=== PATIENT | male | born 1940 | race Caucasian/White ===

== ENCOUNTER 2018-07-05 11:04 | Outpatient (CLI) | payer MEDICARE, BC, SELFPAY ==
[2018-07-05 11:58] LABS: Bilirubin Negative (Negative); Blood Negative (Negative); Clarity Clear; Glucose Negative (Negative); Ketones Negative (Negative); Leukocyte Esterase Negative (Negative); Nitrite Negative (Negative); Specific Gravity 1.025 (1.005-1.025); pH 6.5 (5-8)
[2018-07-05 12:11] LABS: Abs Immature Grans 0.02 k/cumm (0.0-0.09); Absolute Basophil Count 0.05 k/cumm (0.0-0.2); Absolute Lymphocyte Count 1.98 k/cumm (1.2-3.4); Absolute Monocyte Count 0.75 k/cumm (0.11-0.7); Absolute Neutrophil Count 6.22 k/cumm (1.2-6.7); Basophils % 0.5; Eosinophils % 6.2; HCT 36.8 % (40.0-50.0); HGB 12.6 g/dL (13.5-17.5); Immature Grans % 0.2; Lymphocytes % 20.6; Mean Corp. HGB Concentration 34.2 g/dL (32.0-36.0); Mean Corpuscular Hemoglobin 31.3 pg (27.0-33.0); Mean Corpuscular Volume 91.5 fL (80-95); Mean Platelet Volume 10.4 fL (8.0-11.0); Monocytes % 7.8; Neutrophils % 64.7; Platelet Count 313 x1000/uL (130-400); RBC 4.02 m/cumm (4.50-6.00); RBC Distribution Width 12.5 % (11.8-14.1); White Blood Cell Count 9.62 k/cumm (4.4-10.8)
[2018-07-05 13:14] LABS: ALT 31 U/L (12-78); AST 39 U/L (15-37); Albumin 3.6 g/dL (3.4-5.0); Alkaline Phosphatase 46 U/L (46-116); Anion Gap 8.9 mmol/L (3-11); BUN 23 mg/dL (7-18); Bilirubin, Total 0.6 mg/dL (0.2-1.0); CO2 25.1 mmol/L (21.0-32.0); CREATININE 1.45 mg/dL (0.70-1.30); Calcium 9.3 mg/dL (8.5-10.1); Chloride 105 mmol/L (98-107); Cholesterol 153 mg/dL (50-200); Estimated GFR 47.07 (mL/min/1.73m2); Glucose 127 mg/dL (70-100); HDL Cholesterol 61 mg/dL (40-60); LDL CHOLESTEROL 86 mg/dL (<100); Potassium 4.4 mmol/L (3.5-5.1); Sodium 139 mmol/L (136-145); TSH 1.08 uIU/mL (0.358-3.74); Total Protein 6.6 g/dL (6.4-8.2); Triglyceride 84 mg/dL (30-150)
== END 2018-07-05 11:24 ==
PROVIDERS: PCP Internal Medicine; Visit Provider Internal Medicine
DX: E78.2 Mixed hyperlipidemia (principal); D50.9 Iron deficiency anemia, unspecified; N39.0 Urinary tract infection, site not specified
CPT/HCPCS: 36415; 80053; 80061; 83721; 81003; 84443; 85025

== ENCOUNTER 2018-07-16 10:38 | Outpatient (CLI) | payer MEDICARE, BC, SELFPAY ==
[2018-07-16 12:11] LABS: Hemoglobin A1C 6.1 % (4.5-6.2)
== END 2018-07-16 10:58 ==
PROVIDERS: PCP Internal Medicine; Visit Provider Internal Medicine
DX: E11.9 Type 2 diabetes mellitus without complications (principal); Z79.4 Long term (current) use of insulin
CPT/HCPCS: 36415; 83036

== ENCOUNTER 2018-10-02 08:13 | Outpatient (CLI) | payer MEDICARE, BC, SELFPAY ==
[2018-10-02 11:58] LABS: HCT 36.9 % (40.0-50.0); HGB 12.7 g/dL (13.5-17.5); Mean Corp. HGB Concentration 34.4 g/dL (32.0-36.0); Mean Corpuscular Hemoglobin 31.1 pg (27.0-33.0); Mean Corpuscular Volume 90.2 fL (80-95); Mean Platelet Volume 10.2 fL (8.0-11.0); Platelet Count 327 x1000/uL (130-400); RBC 4.09 m/cumm (4.50-6.00); RBC Distribution Width 12.9 % (11.8-14.1); White Blood Cell Count 7.95 k/cumm (4.4-10.8)
[2018-10-02 12:04] LABS: Bilirubin Negative (Negative); Blood Negative (Negative); Clarity Clear; Glucose 100 mg/dL (Negative); Ketones Negative (Negative); Leukocyte Esterase Negative (Negative); Nitrite Negative (Negative); Specific Gravity 1.025 (1.005-1.025); Urobilinogen 0.2 EU/dL (Up TO 0.2); pH 5.5 (5-8)
[2018-10-02 12:46] LABS: Albumin 3.7 g/dL (3.4-5.0); Anion Gap 12.5 mmol/L (3-11); BUN 21 mg/dL (7-18); CO2 24.5 mmol/L (21.0-32.0); CREATININE 1.31 mg/dL (0.70-1.30); Calcium 9.7 mg/dL (8.5-10.1); Chloride 103 mmol/L (98-107); Estimated GFR 52.92 (mL/min/1.73m2); Glucose 171 mg/dL (70-100); Potassium 4.5 mmol/L (3.5-5.1); Sodium 140 mmol/L (136-145)
[2018-10-03 10:45] LABS: Parathyroid Hormone,Intact 28 pg/ml (19-88)
== END 2018-10-02 08:33 ==
PROVIDERS: PCP Internal Medicine; Visit Provider Internal Medicine Nephrology
DX: D64.9 Anemia, unspecified (principal); N18.3 Chronic kidney disease, stage 3 (moderate); E78.5 Hyperlipidemia, unspecified; I10 Essential (primary) hypertension
CPT/HCPCS: 36415; 80069; 82306; 85027; 81003; 83970

== ENCOUNTER 2018-12-23 11:09 | Outpatient (CLI) | payer MEDICARE, BC, SELFPAY ==
--- NOTE | 2018-12-23 10:10 | DIABASSESS_ITS ---
DESCRIPTION/ASSESSMENT: Appreciate diabetes referral for Jeovany Mclean who has been adjusting his mealtime insulin recently and feels he would like to discuss his actions and receive feedback. A1c 6.1 08/01 up from 5.3 ~1 year ago. He reports weight loss now down to 202 from 230 pounds. Blood sugars over the past week of: fasting 130-228, mostly less than 161. Pre-lunch blood sugar 179-215; Pre-supper 173-310mg/dl; bedtime 184-276. Blood sugars consistently higher with the subsequent meal. He takes 10u basal insulin twice daily which he has decreased from 20units twice daily. He has experimented with cutting out mealtime insulin from breakfast and lunch, only taking it at supper. He has now resumed taking insulin before lunch at 10units to cover food plus correction of 6units at blood sugar of 324. He documents this all on his phone calendar. Jeovany has breakfast of oatmeal for breakfast; meat, vegetable, mustard and woodson sandwich on whole grain bread for lunch; meat, pasta and vegetables at supper. He snacks on nuts and eats some fruit. Jeovany reports no financial stressors; he walks most days; he describes his greatest stress as his who he states is bipolar. She fixes his meals. INTERVENTION: DSME is provided based on patients interest and assessment of needs: FOOD: Reviewed diabetes food guide for carbohydrate sources and portions. He admits to hunger mid-morning especially. Explained mixing carbohydrate/fat/protein with each meal to enhance satiety and moderate blood sugars. DIscussed protein at breakfast; increasing mealtime insulin for carbohydrate when he eats a plate of pasta. MEDICATION: Explained physiology of food and insulin. He was unaware that the Novolog was meant to cover carbohydrate consumed. Explained correction action. MONITORING: Discussed discrepancy between A1c and fingerstick blood sugars. He believes the A1c, however his fingersticks do not reflect an average blood sugar of less than 140mg/dl. He denies symptoms of hypoglycemia. Some hypoglycemia would be expected with an insulin taking person with pre-diabetes A1c range. At this point we assume his blood sugars are a reasonable reflection of his glycemic control. ACTION PLAN: Jeovany will: take Novolog with each meal; record blood sugars, food and insulin increase protein/fat at breakfast; take extra mealtime insulin with high carbohydrate meal He will return in 1 week for follow up. Individual DSME/T __2__ units billed TIME IN: 1010 OUT: 1110 No DM group education series being offered at this time.
== END 2018-12-23 11:29 ==
PROVIDERS: PCP Internal Medicine; Visit Provider Dietitian, Registered
DX: E11.9 Type 2 diabetes mellitus without complications (principal); Z79.4 Long term (current) use of insulin; Z71.3 Dietary counseling and surveillance
CPT/HCPCS: G0108

== ENCOUNTER 2018-12-31 01:29 | Outpatient (CLI) | payer MEDICARE, BC, SELFPAY ==
--- NOTE | 2019-01-07 12:11 | DIABASSESS_ITS ---
DESCRIPTION:? Adrian Mclean presents for diabetes self management as follow up to adding mealtime insulin to his regimen.? He maintains careful detailed records on his phone of his medication and food regimen. Fasting blood sugars highly variable 126-214mg/dl; pre-lunch in 200s; pre-supper 176-325 and bedtime 94=[id number]. He takes 5-10units with most meals.? He does not appear to be receiving adequate mealtime insulin to take care of his food, as blood sugars always increase between breakfast and lunch.? In addition, he takes? 10units twice daily of Lantus.? INTERVENTION: Discussed increasing insuolin and he agrees.? Sugges 12u basal insulin twice daily.? Based on his current regimen, he agrees 6 units to cover breakfast and 10units at lunch will work for what he generally eats.? Total insulin dosing a day now is ~38-49 units. Discussed wearing 7 day trial of Continuous glucose monitor to see what happens overnight and post-meal. He will consider this if these changes are not effective.? PLAN: 12 units Lantus twice daily; 6 units Novolog to cover breakfast; 10units to cover lunch Individual DSME/T __2__ units billed TIME IN: 1000 OUT: 1100 No DM group education series being offered at this time.
== END 2018-12-31 01:49 ==
PROVIDERS: PCP Internal Medicine; Visit Provider Dietitian, Registered
DX: E11.9 Type 2 diabetes mellitus without complications (principal); Z71.3 Dietary counseling and surveillance; Z79.4 Long term (current) use of insulin
CPT/HCPCS: G0108

== ENCOUNTER 2019-01-13 10:45 | Outpatient (CLI) | payer MEDICARE, BC, SELFPAY ==
[2019-01-13 15:56] LABS: Bilirubin Negative (Negative); Blood Negative (Negative); Clarity Clear; Glucose 100 mg/dL (Negative); Ketones Negative (Negative); Leukocyte Esterase Negative (Negative); Nitrite Negative (Negative); Specific Gravity 1.025 (1.005-1.025); Urobilinogen 0.2 EU/dL (Up TO 0.2); pH 5.5 (5-8)
[2019-01-13 16:06] LABS: Bacteria Negative HPF (Negative); C & S Indicated? No; Casts Negative LPF (Negative); Epithelial Cells Few HPF (Negative); Mucus Negative (Negative); Other Cells Rare Transitional (Negative); RBC 0-2 (0-2); WBC Negative HPF (0-5)
[2019-01-15 10:35] LABS: PSA, Diagnostic 5.5 ng/ml (0-6.5)
== END 2019-01-13 11:05 ==
PROVIDERS: PCP Internal Medicine; Referring Provider Internal Medicine; Visit Provider Urology
DX: N40.1 Benign prostatic hyperplasia with lower urinary tract symptoms (principal); R97.20 Elevated prostate specific antigen [PSA]
CPT/HCPCS: 36415; 81003; 81015; 84153

== ENCOUNTER 2019-01-20 10:40 | Outpatient (CLI) | payer MEDICARE, BC, SELFPAY ==
--- NOTE | 2019-01-22 08:20 | W.DIABETESNO ---
Date of service: 01/20/19 Time of Service: 10:10 Diabetes Note NOTE: DESCRIPTION/ASSESSMENT: Adrian Mclean presents for diabetes self management follow up. He has added mealtime insulin to his 3 meals, and reports cutting carbohydrate in his diet. Fasting blood sugars over the past week 89-136; pre-lunch 162-273; pre-supper 88-190, bedtime blood sugar 98-207mg/dl. He is taking insulin according to his scale: blood sugar 100-140 7 units at breakfast; 11 units with lunch; 10 units iwth supper unless he has low carbohydrate. Insulin increases 1 unit every 40mg/dl above 140mg/dl. Adrian reports weight today 201. A1c 6.1 INTERVENTION: Given that Adrian's blood sugars are always elevated at lunch, he is willing to increase his breakfast insulin dose by 3 units starting at 9 units. Otherwise he is satisfied with this regimen and feeling good about his self management. PLAN: Adrian will take new insulin scale; he will call with any questions or hypoglycemic episodes. He will stay in touch as he wishes. Time Spent in Nutritional Counseling and Treatment: 20 minutes face to face outpatient diabetes
--- NOTE | 2019-01-22 08:23 | DIABASSESS_ITS ---
Date of service: 01/20/19 Time of Service: 10:10 Diabetes Note NOTE: DESCRIPTION/ASSESSMENT: Adrian Mclean presents for diabetes self management follow up. He has added mealtime insulin to his 3 meals, and reports cutting carbohydrate in his diet. Fasting blood sugars over the past week 89- 136; pre-lunch 162-273; pre-supper 88-190, bedtime blood sugar 98-207mg/dl. He is taking insulin according to his scale: blood sugar 100-140 7 units at breakfast; 11 units with lunch; 10 units iwth supper unless he has low carbohydrate. Insulin increases 1 unit every 40mg/dl above 140mg/dl. Adrian reports weight today 201. A1c 6.1 INTERVENTION: Given that Adrian's blood sugars are always elevated at lunch, he is willing to increase his breakfast insulin dose by 3 units starting at 9 units. Otherwise he is satisfied with this regimen and feeling good about his self management. PLAN: Adrian will take new insulin scale; he will call with any questions or hypoglycemic episodes. He will stay in touch as he wishes. Time Spent in Nutritional Counseling and Treatment: 20 minutes face to face outpatient diabetes
== END 2019-01-20 11:00 ==
PROVIDERS: PCP Internal Medicine; Visit Provider Dietitian, Registered
DX: E11.9 Type 2 diabetes mellitus without complications (principal); Z71.3 Dietary counseling and surveillance

== ENCOUNTER 2019-02-04 02:35 | Outpatient (CLI) | payer MEDICARE, BC, SELFPAY ==
[2019-02-04 09:01] LABS: Abs Immature Grans 0.03 k/cumm (0.0-0.09); HCT 38.4 % (40.0-50.0); HGB 13.2 g/dL (13.5-17.5); Mean Corp. HGB Concentration 34.4 g/dL (32.0-36.0); Mean Corpuscular Hemoglobin 31.7 pg (27.0-33.0); Mean Corpuscular Volume 92.3 fL (80-95); Mean Platelet Volume 10.2 fL (8.0-11.0); Platelet Count 341 x1000/uL (130-400); RBC 4.16 m/cumm (4.50-6.00); RBC Distribution Width 12.8 % (11.8-14.1); White Blood Cell Count 8.09 k/cumm (4.4-10.8)
[2019-02-04 09:05] LABS: Bilirubin Negative (Negative); Blood Negative (Negative); Clarity Clear; Glucose Negative (Negative); Ketones Negative (Negative); Leukocyte Esterase Negative (Negative); Nitrite Negative (Negative); Urobilinogen 0.2 EU/dL (Up TO 0.2)
[2019-02-04 09:46] LABS: COMMENT (LAB VIEW ONLY) 109.01 mg/dL
[2019-02-04 09:50] LABS: Hemoglobin A1C 5.2 % (4.5-6.2)
[2019-02-04 09:51] LABS: ALT 36 U/L (12-78); AST 35 U/L (15-37); Albumin 3.6 g/dL (3.4-5.0); Alkaline Phosphatase 46 U/L (46-116); BUN 22 mg/dL (7-18); Bilirubin, Total 0.6 mg/dL (0.2-1.0); CREATININE 1.51 mg/dL (0.70-1.30); Calcium 9.3 mg/dL (8.5-10.1); Chloride 105 mmol/L (98-107); Glucose 93 mg/dL (70-100); Potassium 4.4 mmol/L (3.5-5.1); Sodium 141 mmol/L (136-145); TSH 2.14 uIU/mL (0.358-3.74); Total Protein 6.7 g/dL (6.4-8.2)
[2019-02-04 10:05] LABS: Cholesterol 153 mg/dL (50-200); HDL Cholesterol 62 mg/dL (40-60); LDL CHOLESTEROL 76 mg/dL (<100); Triglyceride 65 mg/dL (30-150)
[2019-02-04 10:11] LABS: Absolute Basophil Count 0.08 k/cumm (0.0-0.2); Absolute Eosinophil Count 1.05 k/cumm (0.0-0.7); Absolute Lymphocyte Count 2.27 k/cumm (1.2-3.4); Absolute Monocyte Count 0.49 k/cumm (0.11-0.7); Absolute Neutrophil Count 4.21 k/cumm (1.2-6.7); Diff Comment Manual Differential; RBC Morphology Normal
== END 2019-02-04 02:55 ==
PROVIDERS: PCP Internal Medicine; Visit Provider Internal Medicine
DX: E11.9 Type 2 diabetes mellitus without complications (principal); Z79.4 Long term (current) use of insulin; E78.2 Mixed hyperlipidemia; N18.3 Chronic kidney disease, stage 3 (moderate); D50.9 Iron deficiency anemia, unspecified; I10 Essential (primary) hypertension
CPT/HCPCS: 36415; 80053; 80061; 83721; 81003; 82043; 82570; 83036; 84443; 85025

== ENCOUNTER 2019-02-10 16:06 | Outpatient (CLI) | payer MEDICARE, BC, SELFPAY ==
--- NOTE | 2019-02-10 11:20 | DIABASSESS_ITS ---
DESCRIPTION/ASSESSMENT: Adrian Mclean requests a follow up visit to fine tune his insulin dosing and blood sugar management focused on food choices and impact on physical activity and stress. Adrian documents blood sugars, insulin dosing and food intake for past month. Fasting blood sugars over past week 89-140; pre-lunch 108-215, pre-supper 102- 255 and bedtime 88-198. He also assesses at goal blood sugars less than 140mg/dl. Four days were all at goal; 9 days 3 were at target, and 24 days of 2 blood sugars at target and over half of his blood sugars are in target range. Yet he seeks improved glycemic control. He admits this intense management affects his quality of life. Latest A1c 5.2. He denies hypoglycemia. He takes 12-14 units insulin for breakfast and lunch; 12-18 units at supper. He does correct his blood sugar at bedtime if greater than 160mg/dl. He states he does not know why blood sugars are elevated at lunch. He has the same breakfast of egg, ann and oatmeal. He often has salad for lunch or sandwich. Supper has a lot of vegetables and protein as well as a carbohydrate. He snacks on venture bars which are high protein and fiber and low carbohydrate. Adrian takes 24u basal insulin and at least 36u bolus insulin daily. INTERVENTION: Reviewed Adrian's blood sugars in relation to food, stress and physical activity. He is able to see that days he works outside or is more physically active his blood sugars tend to be higher that day. In addition, on days he works and drives, his blood sugars are elevated. Discussed rationale. Discussed monitoring blood sugars 4 times a day and introduced CGM to him as a way to see what happens overnight. He voices interest but would like to wait until G6 is available through medicare. Also discussed his tight glycemic control and risk for hypoglycemia. Discussed food options at breakfast to decrease carbohydrate but he is not willing to give up his oatmeal. In addition, he takes insulin for a no- carbohydrate lunch and does not appear to have hypoglycemia. Reviewed insulin dosing and devised a new dosing scale with a range at Adrian's request. Discussed stressors and coping mechanisms. He self manages this and generally has a plan to address the stressors. ACTION PLAN: Adrian will use the new insulin dosing scale; be mindful of carbohydrate sources while considering his dosing range. Individual MNT __2__ units billed for 40 minutes of 70 minute visit. TIME IN: 1120 OUT: 1230 No DM group education series being offered at this time.
== END 2019-02-10 16:26 ==
PROVIDERS: PCP Internal Medicine; Visit Provider Dietitian, Registered
DX: E11.9 Type 2 diabetes mellitus without complications (principal); Z79.4 Long term (current) use of insulin; Z71.3 Dietary counseling and surveillance
CPT/HCPCS: 97803

== ENCOUNTER 2019-03-07 01:54 | Outpatient (CLI) | payer MEDICARE, BC, SELFPAY ==
--- NOTE | 2019-03-11 12:18 | DIABASSESS_ITS ---
DESCRIPTION/ASSESSMENT: Adrian Mclean presents for diabetes self management follow up for insulin management. Fasting blood sugars 93-132; pre-lunch 100- 170; pre-supper 68-218; bedtime 03=993xa/dl. He takes 13-14units Novolog with breakfast; 11=14 at lunch; 5-17 at supper and 1-3 units bedtime. He takes 13u Lantus twice daily. Total daily dose Novolog ~40; total daily and 26u basal insulin. He is intensively monitoring blood sugars, insulin and his food choices. 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 He continues to feel frustration with his regarding food and her engagement with life although he has not seen a correlation between this stress and his blood sugars. INTERVENTION: Discussed patterns. He reports habit of having a processed protein bar between lunch and supper to prevent hypoglycemia. Given that he is attempting to lose weight, discussed feeding his insulin with too much Novolog. He will continue to pay attention to carbohydrate sources and portions as he notes this is an important component. Suggest increase in basal insulin to 14u Twice daily and decrease in Novolog lunch and supper by 1 unit to prevent feeding his insulin during the day and risking hypoglycemia. PLAN: We will be in touch early next week to see if the new insulin regimen is working for him. He will take insulin only when he is eating a meal; no insulin if skipping a meal Less than 30 minutes DSME in 20 minute visit.
== END 2019-03-07 02:14 ==
PROVIDERS: PCP Internal Medicine; Visit Provider Dietitian, Registered
DX: E11.9 Type 2 diabetes mellitus without complications (principal); Z79.4 Long term (current) use of insulin; Z71.3 Dietary counseling and surveillance
CPT/HCPCS: 97802

== ENCOUNTER 2019-03-11 00:58 | Outpatient (CLI) | payer MEDICARE, BC, SELFPAY ==
--- NOTE | 2019-03-11 14:00 | DI.DEXA_ITS ---
SYMPTOM/DIAGNOSIS: OSTEOPOROSIS, M810, F/U, ON PREDNISONE IN PAST FOR PMR, USP USE ALENDRONATE,Z79.83 DEXA SCAN: The scanogram reveals degenerative changes with hypertrophic spurring at T 12-L 1 and L 1-2 and is otherwise unremarkable. For the left hip, a T score of -0.5 and a Z score of 0.5 indicate osteopenia and an increased fracture risk. For the lumbar spine, a T score of 2.3 and a Z score of 3.4 are within the normal range. For the left forearm, a T score of -3.3 and a Z score of -1.5 are recorded, the findings are consistent with osteopenia and an increased fracture risk.
== END 2019-03-11 01:18 ==
PROVIDERS: PCP Internal Medicine; Visit Provider Internal Medicine
DX: M85.88 Other specified disorders of bone density and structure, other site (principal); Z79.83 Long term (current) use of bisphosphonates; Z79.52 Long term (current) use of systemic steroids
CPT/HCPCS: 77080

== ENCOUNTER 2019-03-31 10:17 | Outpatient (CLI) | payer MEDICARE, BC, SELFPAY ==
--- NOTE | 2019-03-31 10:30 | DIABASSESS_ITS ---
DESCRIPTION/ASSESSMENT: Adrian Mclean requests diabetes self management follow up with fasting blood sugars 107-131 over past 7 days; lunch 101-139; supper 72- 137 and bedtime 817=251. He has increased his awareness of carbohydrate foods and frequency with which he feels the need for between meal foods to feed his insulin. He has cut back on carbohydrate at breakfast. His is portioning his food well. INTERVENTION: Discussed hypoglycemia symptoms and treatment and discussed what to carry with him. Discussed scenerios that would work for him based on blood sugar trends. He is satisfied with his blood sugars when he uses the mealtime insulin scale faithfully. He is highly motivated to keep his blood sugars close to normal without hypoglycemia. ACTION PLAN: He will carry life savers in the car with him and glucose tablets with him at all times. He will follow the hypoglycemia protocol. Individual MNT __2__ units billed TIME IN: 1020 OUT: 1050 No DM group education series being offered at this time.
== END 2019-03-31 10:37 ==
PROVIDERS: PCP Internal Medicine; Visit Provider Dietitian, Registered
DX: E11.9 Type 2 diabetes mellitus without complications (principal); Z79.4 Long term (current) use of insulin; Z71.3 Dietary counseling and surveillance
CPT/HCPCS: 97802

== ENCOUNTER 2019-04-14 07:53 | Outpatient (CLI) | payer MEDICARE, BC, SELFPAY ==
[2019-04-14 12:13] LABS: HCT 37.8 % (40.0-50.0); Mean Corp. HGB Concentration 34.4 g/dL (32.0-36.0); Mean Corpuscular Hemoglobin 31.6 pg (27.0-33.0); Mean Corpuscular Volume 91.7 fL (80-95); Platelet Count 346 x1000/uL (130-400); RBC 4.12 m/cumm (4.50-6.00); RBC Distribution Width 12.7 % (11.8-14.1); White Blood Cell Count 9.12 k/cumm (4.4-10.8)
[2019-04-14 12:29] LABS: PROTEIN 15.9 mg/dL
[2019-04-14 12:31] LABS: COMMENT (LAB VIEW ONLY) 188.44 mg/dL; Prot/Crea Ur Ratio 0.08
[2019-04-14 12:58] LABS: Albumin 3.7 g/dL (3.4-5.0); Anion Gap 14.6 mmol/L (3-11); BUN 32 mg/dL (7-18); CO2 21.4 mmol/L (21.0-32.0); CREATININE 1.73 mg/dL (0.70-1.30); Calcium 9.7 mg/dL (8.5-10.1); Chloride 105 mmol/L (98-107); Estimated GFR 38.29 (mL/min/1.73m2); Glucose 85 mg/dL (70-100); PHOSPHORUS 3.9 mg/dL (2.6-4.7); Potassium 4.7 mmol/L (3.5-5.1); Sodium 141 mmol/L (136-145)
[2019-04-14 13:20] LABS: Vitamin D 25 Total 74.6 ng/ml (30-100)
[2019-04-15 10:56] LABS: Parathyroid Hormone,Intact 44 pg/ml (19-88)
== END 2019-04-14 08:13 ==
PROVIDERS: PCP Internal Medicine; Visit Provider Internal Medicine Nephrology
DX: D64.9 Anemia, unspecified (principal); N18.3 Chronic kidney disease, stage 3 (moderate); E78.5 Hyperlipidemia, unspecified; I10 Essential (primary) hypertension
CPT/HCPCS: 36415; 80069; 82306; 85027; 82565; 83970; 84156

== ENCOUNTER 2019-05-21 01:04 | Outpatient (CLI) | payer MEDICARE, BC, SELFPAY ==
--- NOTE | 2019-05-21 13:20 | DIABASSESS_ITS ---
DESCRIPTION/ASSESSMENT: Adrian presents for follow up for diabetes. Adrian is performing intensive insulin management and documenting blood sugar and insulin dosing for every meal and bedtime. He admits to feeling anxious with blood sugars below 90mg/dl. He has started carrying glucose tablets everywhere and uses them when he starts with that feeling. INTERVENTION: Reviewed blood sugar log to identify efficacy of current mealtime insulin dosing. At lunch he takes 4 units if blood sugar is low; 11 units if it is in 100s. Blood sugars consistently decrease with the 11unit dose, and always increase with the 4 unit dose. Suggest he decrease his lunch dosing from 11 to 9 units to prevent need for afternoon snack and risk for hypoglycemia. Reviewed label for him for interpretation of carbohydrates. ACTION PLAN: Decrease lunch insulin from 11u to 9 units when blood sugar in 100s. He will continue to carry glucose tablets at all times. Individual DSME/T _0___ units billed TIME IN: 1320 OUT: 1340 No DM group education series being offered at this time.
== END 2019-05-21 01:24 ==
PROVIDERS: PCP Internal Medicine; Visit Provider Dietitian, Registered
DX: E11.9 Type 2 diabetes mellitus without complications (principal); Z79.4 Long term (current) use of insulin; Z71.3 Dietary counseling and surveillance

== ENCOUNTER 2019-08-01 00:26 | Outpatient (CLI) | payer MEDICARE, BC, SELFPAY ==
[2019-08-01 08:53] LABS: Abs Immature Grans 0.02 k/cumm (0.0-0.09); Absolute Basophil Count 0.04 k/cumm (0.0-0.2); Absolute Eosinophil Count 0.83 k/cumm (0.0-0.7); Absolute Lymphocyte Count 1.55 k/cumm (1.2-3.4); Absolute Monocyte Count 0.71 k/cumm (0.11-0.7); Absolute Neutrophil Count 4.35 k/cumm (1.2-6.7); Basophils % 0.5; Eosinophils % 11.1; HCT 38.4 % (40.0-50.0); Immature Grans % 0.3; Lymphocytes % 20.7; Mean Corp. HGB Concentration 33.9 g/dL (32.0-36.0); Mean Corpuscular Hemoglobin 31.5 pg (27.0-33.0); Mean Platelet Volume 10.1 fL (8.0-11.0); Monocytes % 9.5; Neutrophils % 57.9; Platelet Count 339 x1000/uL (130-400); RBC 4.13 m/cumm (4.50-6.00); RBC Distribution Width 12.8 % (11.8-14.1)
[2019-08-01 09:13] LABS: Bilirubin Negative (Negative); Blood Negative (Negative); Clarity Clear (Clear); Glucose Negative (Negative); Ketones Negative (Negative); Leukocyte Esterase Negative (Negative); Nitrite Negative (Negative); PROTEIN 13.1 mg/dL; Urobilinogen 0.2 EU/dL (Up TO 0.2); pH 5.5 (5-8)
[2019-08-01 09:18] LABS: Hemoglobin A1C 4.8 % (4.5-6.2)
[2019-08-01 09:26] LABS: COMMENT (LAB VIEW ONLY) 144.36 mg/dL; Prot/Crea Ur Ratio 0.09
[2019-08-01 09:50] LABS: ALT 23 U/L (16-63); AST 24 U/L (15-37); Albumin 3.6 g/dL (3.4-5.0); Alkaline Phosphatase 41 U/L (46-116); Anion Gap 8.8 mmol/L (3-11); BUN 26 mg/dL (7-18); Bilirubin, Total 0.5 mg/dL (0.2-1.0); CO2 26.2 mmol/L (21.0-32.0); CREATININE 1.43 mg/dL (0.70-1.30); Calcium 9.1 mg/dL (8.5-10.1); Calculated LDL 59 mg/dL; Chloride 108 mmol/L (98-107); Cholesterol 143 mg/dL (50-200); Glucose 87 mg/dL (70-100); HDL Cholesterol 72 mg/dL (40-60); Potassium 4.2 mmol/L (3.5-5.1); Sodium 143 mmol/L (136-145); TSH 1.67 uIU/mL (0.36-3.74); Total Protein 6.5 g/dL (6.4-8.2); Triglyceride 62 mg/dL (30-150)
== END 2019-08-01 00:46 ==
PROVIDERS: PCP Internal Medicine; Visit Provider Internal Medicine
DX: E78.2 Mixed hyperlipidemia (principal); E11.9 Type 2 diabetes mellitus without complications; Z79.4 Long term (current) use of insulin; I10 Essential (primary) hypertension; D64.9 Anemia, unspecified
CPT/HCPCS: 36415; 80053; 80061; 81003; 82565; 83036; 84156; 84443; 85025

== ENCOUNTER 2020-01-28 01:37 | Outpatient (CLI) | payer MEDICARE, BC, SELFPAY ==
[2020-01-28 10:17] LABS: Bilirubin Negative (Negative); Blood Negative (Negative); Clarity Clear (Clear); Glucose Negative (Negative); Ketones Negative (Negative); Leukocyte Esterase Negative (Negative); Nitrite Negative (Negative); Specific Gravity 1.025 (1.005-1.025); Urobilinogen 0.2 EU/dL (Up TO 0.2); pH 5.5 (5-8)
[2020-01-28 10:32] LABS: Abs Immature Grans 0.01 k/cumm (0.0-0.09); Absolute Basophil Count 0.04 k/cumm (0.0-0.2); Absolute Lymphocyte Count 1.63 k/cumm (1.2-3.4); Absolute Monocyte Count 0.65 k/cumm (0.11-0.7); Absolute Neutrophil Count 4.34 k/cumm (1.2-6.7); Basophils % 0.5; Eosinophils % 10.7; HCT 38.4 % (40.0-50.0); HGB 12.9 g/dL (13.5-17.5); Immature Grans % 0.1 %; Lymphocytes % 21.8; Mean Corp. HGB Concentration 33.6 g/dL (32.0-36.0); Mean Corpuscular Hemoglobin 31.6 pg (27.0-33.0); Mean Corpuscular Volume 94.1 fL (80-95); Mean Platelet Volume 10.4 fL (8.0-11.0); Monocytes % 8.7; Neutrophils % 58.2; Platelet Count 271 x1000/uL (130-400); RBC 4.08 m/cumm (4.50-6.00); White Blood Cell Count 7.47 k/cumm (4.4-10.8)
[2020-01-28 10:47] LABS: Hemoglobin A1C 4.8 % (3.8-5.6)
[2020-01-28 10:58] LABS: ALT 23 U/L (16-63); AST 20 U/L (15-37); Albumin 3.6 g/dL (3.4-5.0); Alkaline Phosphatase 43 U/L (46-116); Anion Gap 9.9 mmol/L (3-11); BUN 29 mg/dL (7-18); Bilirubin, Total 0.6 mg/dL (0.2-1.0); CO2 24.1 mmol/L (21.0-32.0); CREATININE 1.46 mg/dL (0.70-1.30); Calcium 9.1 mg/dL (8.5-10.1); Calculated LDL 68 mg/dL (<100); Chloride 107 mmol/L (98-107); Cholesterol 152 mg/dL (<200); Estimated GFR 46.46 (mL/min/1.73m2); Glucose 111 mg/dL (74-106); HDL Cholesterol 70 mg/dL (40-60); Potassium 4.5 mmol/L (3.5-5.1); Sodium 141 mmol/L (136-145); TSH 0.74 uIU/mL (0.36-3.74); Total Protein 6.7 g/dL (6.4-8.2); Triglyceride 73 mg/dL (<150)
[2020-01-29 04:39] LABS: Vitamin D 25 Total 62.2 ng/ml (30-100)
[2020-01-29 18:57] LABS: PSA, Diagnostic 3.4 ng/mL (0.0-6.5)
== END 2020-01-28 01:57 ==
PROVIDERS: Urology; PCP Internal Medicine; Visit Provider Internal Medicine
DX: E78.5 Hyperlipidemia, unspecified (principal); N18.3 Chronic kidney disease, stage 3 (moderate); N40.1 Benign prostatic hyperplasia with lower urinary tract symptoms; E55.9 Vitamin D deficiency, unspecified; E11.9 Type 2 diabetes mellitus without complications; R97.20 Elevated prostate specific antigen [PSA]; D50.9 Iron deficiency anemia, unspecified; I10 Essential (primary) hypertension; Z79.4 Long term (current) use of insulin
CPT/HCPCS: 36415; 80053; 80061; 82306; 81003; 83036; 84153; 84443; 85025

== ENCOUNTER 2020-05-20 01:48 | Outpatient (CLI) | payer MEDICARE, SELFPAY ==
[2020-05-20 12:14] LABS: HCT 37.9 % (40.0-50.0); HGB 12.8 g/dL (13.5-17.5); MCHC 33.8 % (32.0-36.0); MCV 94.8 fL (80-95); MPV 10.2 fL (8.0-11.0); Platelet Count 322 10^3/uL (130-400); RDW 12.3 % (11.8-14.1); RDW-SD 43.3 fL; WBC 10.16 10^3/uL (4.4-10.8)
[2020-05-20 12:14] LABS: Bilirubin Negative (Negative); Blood Negative (Negative); Clarity Clear (Clear); Glucose Negative (Negative); Ketones Negative (Negative); Leukocyte Esterase Negative (Negative); Nitrite Negative (Negative); Specific Gravity 1.025 (1.005-1.025); Urobilinogen 0.2 EU/dL (Up TO 0.2)
[2020-05-20 12:51] LABS: PROTEIN 13.2 mg/dL
[2020-05-20 12:52] LABS: Albumin 3.8 g/dL (3.4-5.0); Anion Gap 10.1 mmol/L (3-11); BUN 31 mg/dL (7-18); CO2 23.9 mmol/L (21.0-32.0); Calcium 9.7 mg/dL (8.5-10.1); Chloride 107 mmol/L (98-107); Glucose 116 mg/dL (74-106); Potassium 4.8 mmol/L (3.5-5.1); Sodium 141 mmol/L (136-145)
[2020-05-20 12:52] LABS: COMMENT (LAB VIEW ONLY) 155.59 mg/dL; Prot/Crea Ur Ratio 0.08
[2020-05-20 13:02] LABS: PHOSPHORUS 3.4 mg/dL (2.6-4.7)
[2020-05-20 13:17] LABS: Vitamin D 25 Total 64.7 ng/ml (30-100)
[2020-05-21 09:12] LABS: Parathyroid Hormone,Intact 46 pg/mL (19-88)
== END 2020-05-20 02:08 ==
PROVIDERS: PCP Internal Medicine; Visit Provider Internal Medicine Nephrology
DX: D64.9 Anemia, unspecified (principal); N18.3 Chronic kidney disease, stage 3 (moderate); E78.5 Hyperlipidemia, unspecified; I12.9 Hypertensive chronic kidney disease with stage 1 through stage 4 chronic kidney disease, or unspecified chronic kidney disease
CPT/HCPCS: 36415; 80069; 82306; 85027; 81003; 82565; 83970; 84156

== ENCOUNTER 2020-07-16 07:03 | Outpatient (CLI) | payer MEDICARE, SELFPAY ==
[2020-07-16 09:48] LABS: Abs Immature Grans 0.04 10^3/uL (0.0-0.06); Absolute Basophil Count 0.04 10^3/uL (0.0-0.2); Absolute Eosinophil Count 0.79 10^3/uL (0.0-0.7); Absolute Lymphocyte Count 1.99 10^3/uL (1.2-3.4); Absolute Monocyte Count 0.77 10^3/uL (0.1-0.8); Absolute Neutrophil Count 5.34 10^3/uL (1.2-6.7); Basophils % 0.4; Eosinophils % 8.8; HCT 39.6 % (40.0-50.0); HGB 13.4 g/dL (13.5-17.5); Immature Grans % 0.4; Lymphocytes % 22.2; MCH 32.4 pg (27.0-33.0); MCHC 33.8 % (32.0-36.0); MCV 95.7 fL (80-95); MPV 10.2 fL (8.0-11.0); Monocytes % 8.6; Neutrophils % 59.6; Nucleated RBC 0 %; Platelet Count 331 10^3/uL (130-400); RBC 4.14 10^6/uL (4.36-5.78); RDW 12.7 % (11.8-14.1); RDW-SD 44.4 fL; WBC 8.97 10^3/uL (4.4-10.8)
[2020-07-16 09:58] LABS: Hemoglobin A1C 4.8 % (<5.7)
[2020-07-16 10:02] LABS: Bilirubin Negative (Negative); Blood Negative (Negative); Clarity Clear (Clear); Glucose Negative (Negative); Ketones Negative (Negative); Leukocyte Esterase Negative (Negative); Nitrite Negative (Negative); Specific Gravity 1.025 (1.005-1.025); Urobilinogen 0.2 EU/dL (Up TO 0.2); pH 5.5 (5-8)
[2020-07-16 10:50] LABS: COMMENT (LAB VIEW ONLY) 95.37 mg/dL
[2020-07-16 11:01] LABS: ALT 26 U/L (16-63); AST 22 U/L (15-37); Albumin 3.8 g/dL (3.4-5.0); Alkaline Phosphatase 43 U/L (46-116); Anion Gap 2.7 mmol/L (3-11); BUN 28 mg/dL (7-18); Bilirubin, Total 0.6 mg/dL (0.2-1.0); CO2 28.3 mmol/L (21.0-32.0); CREATININE 1.47 mg/dL (0.70-1.30); Calcium 9.5 mg/dL (8.5-10.1); Calculated LDL 63 mg/dL (<100); Chloride 108 mmol/L (98-107); Cholesterol 156 mg/dL (<200); Estimated GFR 46.09 (mL/min/1.73m2); Glucose 100 mg/dL (74-106); HDL Cholesterol 79 mg/dL (40-60); Potassium 4.2 mmol/L (3.5-5.1); Sodium 139 mmol/L (136-145); Total Protein 6.8 g/dL (6.4-8.2); Triglyceride 73 mg/dL (<150)
== END 2020-07-16 07:23 ==
PROVIDERS: PCP Internal Medicine; Visit Provider Internal Medicine
DX: E11.9 Type 2 diabetes mellitus without complications (principal); Z79.4 Long term (current) use of insulin; D64.9 Anemia, unspecified; E78.2 Mixed hyperlipidemia; N40.1 Benign prostatic hyperplasia with lower urinary tract symptoms
CPT/HCPCS: 36415; 80053; 80061; 81003; 82043; 82570; 83036; 84443; 85025

== ENCOUNTER 2020-12-13 11:48 | Outpatient (CLI) | payer MEDICARE, BC, SELFPAY ==
[2020-12-13 12:27] LABS: HCT 39.4 % (40.0-50.0); HGB 13.2 g/dL (13.5-17.5); MCH 31.4 pg (27.0-33.0); MCHC 33.5 % (32.0-36.0); MCV 93.8 fL (80-95); MPV 10.1 fL (8.0-11.0); Platelet Count 381 10^3/uL (130-400); RDW 13.2 % (11.8-14.1); RDW-SD 45.1 fL; WBC 11.68 10^3/uL (4.4-10.8)
[2020-12-13 12:27] LABS: Bilirubin Negative (Negative); Blood Negative (Negative); Clarity Clear (Clear); Glucose Negative (Negative); Ketones Negative (Negative); Leukocyte Esterase Negative (Negative); Nitrite Negative (Negative); Specific Gravity 1.025 (1.005-1.025); Urobilinogen 0.2 EU/dL (Up TO 0.2)
[2020-12-13 13:21] LABS: Albumin 3.7 g/dL (3.4-5.0); Anion Gap 8.9 mmol/L (3-11); BUN 30 mg/dL (7-18); CO2 25.1 mmol/L (21.0-32.0); CREATININE 1.5 mg/dL (0.70-1.30); Calcium 9.7 mg/dL (8.5-10.1); Chloride 106 mmol/L (98-107); Estimated GFR 44.92 (mL/min/1.73m2); Glucose 139 mg/dL (74-106); PHOSPHORUS 2.8 mg/dL (2.6-4.7); Potassium 4.5 mmol/L (3.5-5.1); Sodium 140 mmol/L (136-145)
[2020-12-14 10:00] LABS: Parathyroid Hormone,Intact 44 pg/mL (19-88)
== END 2020-12-13 11:49 | disposition home or self-care (01) ==
LOC: LBO 11:58
PROVIDERS: PCP Internal Medicine; Visit Provider Internal Medicine
DX: D64.9 Anemia, unspecified (principal); N18.30 Chronic kidney disease, stage 3 unspecified; E78.5 Hyperlipidemia, unspecified; I10 Essential (primary) hypertension
CPT/HCPCS: 36415; 80069; 85027; 81003; 83970; 85025

== ENCOUNTER 2020-12-17 01:52 | Outpatient (CLI) | payer MEDICARE, BC, SELFPAY ==
--- NOTE | 2020-12-17 13:00 | NS.NUTBLAN_ITS ---
ASSESSMENT: 80 y/o male presents with referral from Dr. Lopes at [facility] for DM annual appointment to review med regimen and self management techniques. He has adjusted his insulin based on years of self management guidance from [facility] DSME program with Sheyla العراقي MS, RD, CDE. Documentation reveals 18 units Lantus BID. Patient reports he is taking split dose of Lantus 13 u am and 13 u pm. His Insulin:CHO ratio is 1 unit insulin for 30 g CHO coverage. He administers bolus of aspart 6 u am, 6 u lunch and 9 u at supper. He takes 50 mg Januvia PO qd.. His BG numbers look very good and he keeps meticulous records of food and beverage intake along with finger sticks 4X/day and records his insulin usage. He stated that he does get some help from his with the tracking and reports that he feels his memory is not as sharp as it was years ago. He weighs himself daily and reports 191-192lbs consistently. He says he would like to lose some weight. He is currently 125% IBW. Subjectively, he does not appear to be obese. He eats fresh whole foods, avoids sugary drinks and takes occasional sweets which he does in small portions and compensates accordingly with insulin if necessary. INTERVENTION: This RD recommended he ask his PCP for an A1c lab as there was no current documentation available. We discussed the time in range concept vs. A1c which he comprehends well. He is an excellent candidate for CGM due to his meticulous nature and interest in data collection. He stated that he wants to do further research on the devices and agreed that there is some value in using CGM for him. MONITOR/EVAL: Mr. Mclean is going to contact PCP for A1c and further discussion r/t CGM use. He is managing his DM quite well and has an excellent knowledge of his current situation. He is stable and agrees to return for f/u prn. Time spent face to face: 1 hour/ 4 units
== END 2020-12-17 01:53 | disposition home or self-care (01) ==
LOC: DS 01:52
PROVIDERS: PCP Internal Medicine; Visit Provider Dietitian, Registered
DX: E11.9 Type 2 diabetes mellitus without complications (principal); Z79.4 Long term (current) use of insulin; Z71.3 Dietary counseling and surveillance
CPT/HCPCS: 97802

== ENCOUNTER 2021-01-04 03:43 | Outpatient (CLI) | payer MEDICARE, BC, SELFPAY ==
[2021-01-04 11:12] LABS: Abs Immature Grans 0.02 10^3/uL (0.0-0.06); Absolute Basophil Count 0.06 10^3/uL (0.0-0.2); Absolute Eosinophil Count 0.71 10^3/uL (0.0-0.7); Absolute Lymphocyte Count 1.61 10^3/uL (1.2-3.4); Absolute Monocyte Count 0.54 10^3/uL (0.1-0.8); Absolute Neutrophil Count 4.76 10^3/uL (1.2-6.7); Basophils % 0.8; Eosinophils % 9.2; HCT 39.1 % (40.0-50.0); Immature Grans % 0.3; Lymphocytes % 20.9; MCHC 33.2 % (32.0-36.0); MCV 93.1 fL (80-95); MPV 10.2 fL (8.0-11.0); Neutrophils % 61.8; Nucleated RBC 0 %; Platelet Count 303 10^3/uL (130-400); RDW 12.9 % (11.8-14.1); RDW-SD 44.1 fL
[2021-01-04 11:15] LABS: Bilirubin Negative (Negative); Blood Negative (Negative); Clarity Clear (Clear); Glucose Negative (Negative); Ketones Negative (Negative); Leukocyte Esterase Trace (Negative); Nitrite Negative (Negative); Specific Gravity >= 1.030 (1.005-1.025); Urobilinogen 0.2 EU/dL (Up TO 0.2); pH 5.5 (5-8)
[2021-01-04 11:21] LABS: Hemoglobin A1C 5.2 % (<5.7)
[2021-01-04 11:28] LABS: COMMENT (LAB VIEW ONLY) 119.46 mg/dL; Microalb ug/mg Crea 4.4 ug/mg Cr
[2021-01-04 11:29] LABS: Bacteria Many HPF (Negative); C & S Indicated? Yes; Casts Negative LPF (Negative); Crystals Negative HPF (Negative); Epithelial Cells Rare HPF (Negative); Mucus Negative (Negative); WBC >50 HPF (0-5)
[2021-01-04 11:56] LABS: ALT 32 U/L (16-63); AST 27 U/L (15-37); Albumin 3.7 g/dL (3.4-5.0); Alkaline Phosphatase 56 U/L (46-116); Anion Gap 10.5 mmol/L (3-11); BUN 26 mg/dL (7-18); Bilirubin, Total 0.5 mg/dL (0.2-1.0); CO2 25.5 mmol/L (21.0-32.0); CREATININE 1.2 mg/dL (0.70-1.30); Calcium 9.6 mg/dL (8.5-10.1); Calculated LDL 77 mg/dL (<100); Chloride 108 mmol/L (98-107); Cholesterol 170 mg/dL (<200); Estimated GFR 58.11 (mL/min/1.73m2); Glucose 92 mg/dL (74-106); HDL Cholesterol 77 mg/dL (40-60); Potassium 4.6 mmol/L (3.5-5.1); Sodium 144 mmol/L (136-145); TSH 0.85 uIU/mL (0.36-3.74); Total Protein 6.8 g/dL (6.4-8.2); Triglyceride 82 mg/dL (<150)
[2021-01-04 18:31] LABS: PSA, Diagnostic 3.6 ng/mL (0.0-6.5)
== END 2021-01-04 03:44 | disposition home or self-care (01) ==
LOC: LBO 03:43
PROVIDERS: PCP Internal Medicine; Visit Provider Urology
DX: N40.1 Benign prostatic hyperplasia with lower urinary tract symptoms (principal); R97.20 Elevated prostate specific antigen [PSA]; N30.00 Acute cystitis without hematuria; E78.5 Hyperlipidemia, unspecified; D50.9 Iron deficiency anemia, unspecified; N18.31 Chronic kidney disease, stage 3a; M81.0 Age-related osteoporosis without current pathological fracture; I10 Essential (primary) hypertension; E11.9 Type 2 diabetes mellitus without complications; M35.3 Polymyalgia rheumatica; J45.20 Mild intermittent asthma, uncomplicated
CPT/HCPCS: 36415; 80053; 80061; 81003; 81015; 82043; 82570; 83036; 84153; 84443; 85025; 87086

== ENCOUNTER 2021-02-09 03:48 | Outpatient (CLI) | payer MEDICARE, BC, SELFPAY ==
--- NOTE | 2021-02-09 01:00 | NS.NUTBLAN_ITS ---
ASSESSMENT: Adrian returns for DM counseling, setting up [email or web address] remote Monitoring for his new CGM. He has used it for 14 days and continues to augment the device with copious notes on food intake , insulin adjustments , and occasional fingersticks for comparison b/t interstitial fluid and BG readings. He reports being satisfied with the device and looks forward to seeing the reports generated by the data collection. He stated that he has had significant stressors recently with family estate planning and he is aware that his BG levels can be effected by cortisol. He has been taking 12 units Lantus am and HS with 5 units novolog at meals. For the most part his food choices are healthy. INTERVENTION: Reviewed insulin regimen and Adrian was able to successfully remove and replace new 14 day sensor with some guidance. Downloaded [employer] and produced AGP report and a packet that he can bring along to Dr. Lopes at his next visit for analysis. CGM data is adequate for analysis by , PA, or DYER ASSISTANT: Dates: 01/27-02/09 2021 % Time CGM active: 87%- Adrian will charge the device at his night stand with 20ft for Avg Glucose: 118 mg/dl Time in Range : 91% ( 70-180mg/dl) GMI: 6.1% ( comparable to A1c) Glucose Variability: 31.7% Hypoglycemic episodes 54-69 mg/dl: 2% ( WNL) 29 min Very Low ( <54 mg/dl) 0% Hyperglycemic episodes: >180 mg/dl 6% ( 1 hr 26 min) MONITOR/EVAL: Recommend Adrian reduce his am Lantus by 2 units Time spent face to face: 30 minutes /2 units
== END 2021-02-09 03:49 | disposition home or self-care (01) ==
PROVIDERS: PCP Internal Medicine; Visit Provider Dietitian, Registered
DX: E11.65 Type 2 diabetes mellitus with hyperglycemia (principal); Z79.4 Long term (current) use of insulin; Z71.3 Dietary counseling and surveillance
CPT/HCPCS: 97803

== ENCOUNTER 2021-05-31 04:15 | Outpatient (CLI) | payer MEDICARE, BC, SELFPAY ==
--- NOTE | 2021-05-31 10:00 | NS.NUTBLAN_ITS ---
Adrian returns for DM self management education. He has brought in his Libre2 Continuous Glucose Monitor for down load. He reports that he is taking 9 units Lantus in AM and PM, 4 units Novolog at breakfast and 9 units Novolog at dinner. He does not take insulin at lunch. He is concerned today re: glycemic excursions from noon- 3pm and wants to increase his AM lantus to 10 units for better coverage. He is not interested in taking insulin at lunch as he prefers taking his insulin in home setting. Diet recall indicates well balanced regular meal times. Intervention: Downloaded [employer] and produced AGP report. CGM data as follows for last 14 days: Average glucose: 137 mg/dl Time in Range: 85% (70-180 mg/dl) GMI: 6.6% (comparable to A1C) Glucose Variability: 28.1% 0% hypoglycemic events 15% hyperglycemic events Reviewed blood sugar trends with Adrian and reviewed importance of avoiding hypoglycemic events. Encouraged him to speak to PCP- Stacie Lopes MD to discuss dose adjustement. Provided meal adjustments for mid day meal to help reduce glycemic excursions. Overall, Adrian is managing his Dm well and the CGM has been helpful in identifying trends. No follow up planned at this time. 30 units face to face/ 2 units
== END 2021-05-31 04:16 | disposition home or self-care (01) ==
LOC: DS 04:15
PROVIDERS: PCP Internal Medicine; Visit Provider Dietitian, Registered
DX: E11.9 Type 2 diabetes mellitus without complications (principal); Z79.4 Long term (current) use of insulin; Z71.3 Dietary counseling and surveillance
CPT/HCPCS: 97803

== ENCOUNTER 2021-07-15 12:21 | Outpatient (CLI) | payer MEDICARE, BC, SELFPAY ==
[2021-07-15 15:44] LABS: COMMENT (LAB VIEW ONLY) 165.43 mg/dL; PROTEIN 14.7 mg/dL; Prot/Crea Ur Ratio 0.08
[2021-07-15 15:50] LABS: HCT 36.1 % (40.0-50.0); HGB 12.2 g/dL (13.5-17.5); MCH 31.5 pg (27.0-33.0); MCHC 33.8 % (32.0-36.0); MCV 93.3 fL (80-95); Platelet Count 280 10^3/uL (130-400); RBC 3.87 10^6/uL (4.36-5.78); RDW 12.4 % (11.8-14.1); RDW-SD 42.4 fL; WBC 8.88 10^3/uL (4.4-10.8)
[2021-07-15 16:13] LABS: Bilirubin Negative (Negative); Blood Negative (Negative); Clarity Clear (Clear); Glucose 100 mg/dL (Negative); Ketones Trace mg/dL (Negative); Leukocyte Esterase Negative (Negative); Nitrite Negative (Negative); Specific Gravity >= 1.030 (1.005-1.025); Urobilinogen 0.2 EU/dL (Up TO 0.2); pH 5.5 (5-8)
[2021-07-15 16:30] LABS: Albumin 3.6 g/dL (3.4-5.0); Anion Gap 9.9 mmol/L (3-11); BUN 30 mg/dL (7-18); CO2 25.1 mmol/L (21.0-32.0); CREATININE 1.6 mg/dL (0.70-1.30); Calcium 9.7 mg/dL (8.5-10.1); Chloride 106 mmol/L (98-107); Estimated GFR 41.69 (mL/min/1.73m2); Glucose 212 mg/dL (74-106); PHOSPHORUS 3.3 mg/dL (2.6-4.7); Potassium 4.7 mmol/L (3.5-5.1); Sodium 141 mmol/L (136-145)
[2021-07-18 05:19] LABS: Vitamin D 25 Total 63.2 ng/mL (30-100)
[2021-07-18 11:48] LABS: Parathyroid Hormone,Intact 34 pg/mL (19-88)
== END 2021-07-15 12:22 | disposition home or self-care (01) ==
PROVIDERS: PCP Internal Medicine; Visit Provider Urology
DX: D64.9 Anemia, unspecified (principal); I10 Essential (primary) hypertension; E78.5 Hyperlipidemia, unspecified; N18.30 Chronic kidney disease, stage 3 unspecified
CPT/HCPCS: 36415; 80069; 82306; 85027; 81003; 82565; 83970; 84156

== ENCOUNTER 2021-07-22 03:34 | Outpatient (CLI) | payer MEDICARE, BC, SELFPAY ==
[2021-07-22 11:31] LABS: Abs Immature Grans 0.02 10^3/uL (0.0-0.06); Absolute Basophil Count 0.07 10^3/uL (0.0-0.2); Absolute Eosinophil Count 0.54 10^3/uL (0.0-0.7); Absolute Lymphocyte Count 1.41 10^3/uL (1.2-3.4); Absolute Monocyte Count 0.69 10^3/uL (0.1-0.8); Absolute Neutrophil Count 6.32 10^3/uL (1.2-6.7); Basophils % 0.8; HCT 37.6 % (40.0-50.0); HGB 12.5 g/dL (13.5-17.5); Immature Grans % 0.2; Lymphocytes % 15.6; MCH 31.6 pg (27.0-33.0); MCHC 33.2 % (32.0-36.0); MCV 94.9 fL (80-95); MPV 9.8 fL (8.0-11.0); Monocytes % 7.6; Neutrophils % 69.8; Nucleated RBC 0 %; Platelet Count 295 10^3/uL (130-400); RBC 3.96 10^6/uL (4.36-5.78); RDW 12.4 % (11.8-14.1); RDW-SD 43.4 fL; WBC 9.05 10^3/uL (4.4-10.8)
[2021-07-22 11:57] LABS: Hemoglobin A1C 5.4 % (<5.7)
[2021-07-22 12:07] LABS: Bilirubin Negative (Negative); Blood Negative (Negative); Clarity Clear (Clear); Glucose Negative (Negative); Ketones Negative (Negative); Leukocyte Esterase Negative (Negative); Nitrite Negative (Negative); Specific Gravity >= 1.030 (1.005-1.025); Urobilinogen 0.2 EU/dL (Up TO 0.2); pH 5.5 (5-8)
[2021-07-22 12:30] LABS: Iron 109 ug/dL (65-175); Total Iron Binding Capacity 391 ug/dL (250-450); Transferrin Sat 28 % (20-55)
[2021-07-22 12:47] LABS: ALT 30 U/L (16-63); AST 23 U/L (15-37); Albumin 3.7 g/dL (3.4-5.0); Alkaline Phosphatase 45 U/L (46-116); Anion Gap 10.4 mmol/L (3-11); BUN 27 mg/dL (7-18); CO2 23.6 mmol/L (21.0-32.0); CREATININE 1.4 mg/dL (0.70-1.30); Calcium 9.6 mg/dL (8.5-10.1); Calculated LDL 74 mg/dL (<100); Chloride 107 mmol/L (98-107); Cholesterol 163 mg/dL (<200); Estimated GFR 48.64 (mL/min/1.73m2); Ferritin 36 ng/mL (26-388); Glucose 147 mg/dL (74-106); HDL Cholesterol 74 mg/dL (40-60); Potassium 4.5 mmol/L (3.5-5.1); Sodium 141 mmol/L (136-145); TSH 0.86 uIU/mL (0.36-3.74); Total Protein 6.7 g/dL (6.4-8.2); Triglyceride 78 mg/dL (<150)
[2021-07-22 12:58] LABS: COMMENT (LAB VIEW ONLY) 192.03 mg/dL; Microalb ug/mg Crea 5.7 ug/mg Cr
[2021-07-22 12:59] LABS: Bilirubin, Total 0.5 mg/dL (0.2-1.0)
[2021-07-29 12:38] LABS: Result Summary NEGATIVE; Specimen WB Whole Blood
== END 2021-07-22 03:35 | disposition home or self-care (01) ==
LOC: LBO 03:34
PROVIDERS: PCP Internal Medicine; Visit Provider Internal Medicine
DX: E78.2 Mixed hyperlipidemia (principal); N18.2 Chronic kidney disease, stage 2 (mild); D63.1 Anemia in chronic kidney disease; E11.9 Type 2 diabetes mellitus without complications; Z79.4 Long term (current) use of insulin; Z83.49 Family history of other endocrine, nutritional and metabolic diseases
CPT/HCPCS: 80053; 80061; 81003; 81256; 82043; 82570; 82728; 83036; 83540; 83550; 84443; 85025

== ENCOUNTER 2021-08-10 12:22 | Outpatient (CLI) | payer MEDICARE, BC, SELFPAY ==
--- NOTE | 2021-08-10 10:00 | NS.NUTBLAN_ITS ---
Adrian returns for Medical Nutrition Therapy for Diabetes Self Management Education. He uses a Mirian 2 Continuous Glucose Monitor. DM meds: 5 units lantus AM, 3 units rita at breakfast, 9 units lantus q HS. He does not take insulin during day. CGM Down Load indicates (07/28/21 to 08/10/21) Average BS: 144 mg/dl 86% of time in Time in Range (70-180 mg/dl) no hypoglycemic events 13% of time 180-250 mg/dol 1% of time > 250 mg/dl Overall glycemic control excellent and meeting optimal ranges and targets. In review of daily blood sugars graphs noted elevations > 180 mg/dl occurring after lunch. Recommended Rj consider increasing his lantus to 7 units in AM. Rj is frustrated that he cannot lose weight despite increasing his steps daily- average steps [id number] per day. Meals mostly well balanced and home cooked. Encouraged Rj to continue to exercise/walk as is beneficial despite weight stability. Follow up planned in next 4 weeks, Rj to call to make appointment.
--- NOTE | 2021-08-23 13:56 | W.DIABETESNO ---
Date of service: 08/23/21 Time of Service: 13:56 Diabetes Note NOTE: Spoke to Adrian on phone today. He reports hypoglycemia of 62 mg/dl this am around 10 am. DM meds: 7 units lantus AM, 3 units novolog at breakfast, 9 units lantus PM, 7 units novolog at dinner. Has increased his walking to average 8000 steps her day. Suspect, decrease in insulin resistance with increased exercise. No change in diet. Recommend that he d/c novolog at breakfast for next couple of days and monitor. Encouraged him to call PCP when blood sugars fall below 70 or go above 250 mg/dl. At this time, Diabetes well controlled with CGM. Will continue to support and be available. Time Spent in Nutritional Counseling and Treatment: 20 min
--- NOTE | 2021-09-12 12:09 | W.DIABETESNO ---
Date of service: 09/12/21 Time of Service: 12:09 Diabetes Note NOTE: Spoke to Mr. Mclean on phone today. He continues to use a Landry 2 continuous glucose monitor and reports that he has made additional adjustments in insulin in response to hypoglycemic events last month. Currently taking only 8 units lantus BID- no meal time insulin. Previously was taking 3 u rita at breakfast and 7 units rita at supper, with 7 units lantus BID. He reports time in range >70% with no hyper or hypo glycemic events. Mr. Mclean walks [id number] steps per day rain or shine and has lost 26 lbs in last 2 years. Overall, Mr. Mclean has gone from 96 units of total daily dose of insulin in 2019 to 16 units TDD by decreasing insulin resistance with exercise and weight loss and by altering meals based on CGM data in real time. Mr. Mclean is an excellent example how a CGM can help empower people with diabetes to manage and improve their treatment outcomes. Time Spent in Nutritional Counseling and Treatment: 20
== END 2021-08-10 12:23 | disposition home or self-care (01) ==
LOC: DS 12:26
PROVIDERS: PCP Internal Medicine; Visit Provider Dietitian, Registered
DX: E11.9 Type 2 diabetes mellitus without complications (principal); Z79.4 Long term (current) use of insulin; Z71.3 Dietary counseling and surveillance
CPT/HCPCS: 97803

== ENCOUNTER 2021-10-21 03:56 | Outpatient (CLI) | payer MEDICARE, BC, SELFPAY ==
[2021-10-21 10:24] LABS: Abs Immature Grans 0.02 10^3/uL (0.0-0.06); Absolute Basophil Count 0.04 10^3/uL (0.0-0.2); Absolute Eosinophil Count 0.56 10^3/uL (0.0-0.7); Absolute Lymphocyte Count 1.38 10^3/uL (1.2-3.4); Absolute Monocyte Count 0.81 10^3/uL (0.1-0.8); Absolute Neutrophil Count 5.07 10^3/uL (1.2-6.7); Basophils % 0.5; Eosinophils % 7.1; HCT 37.4 % (40.0-50.0); HGB 12.5 g/dL (13.5-17.5); Immature Grans % 0.3; Lymphocytes % 17.5; MCHC 33.4 % (32.0-36.0); MCV 92.8 fL (80-95); MPV 10.4 fL (8.0-11.0); Monocytes % 10.3; Neutrophils % 64.3; Nucleated RBC 0 %; Platelet Count 289 10^3/uL (130-400); RBC 4.03 10^6/uL (4.36-5.78); RDW 12.4 % (11.8-14.1); RDW-SD 43.1 fL; WBC 7.88 10^3/uL (4.4-10.8)
[2021-10-21 10:36] LABS: Hemoglobin A1C 5.8 % (<5.7)
[2021-10-21 11:28] LABS: Iron 123 ug/dL (65-175); Total Iron Binding Capacity 391 ug/dL (250-450); Transferrin Sat 31 % (20-55)
[2021-10-21 11:34] LABS: COMMENT (LAB VIEW ONLY) 132.51 mg/dL; Microalb ug/mg Crea 4.4 ug/mg Cr
[2021-10-21 11:49] LABS: ALT 24 U/L (16-63); AST 21 U/L (15-37); Albumin 3.9 g/dL (3.4-5.0); Alkaline Phosphatase 54 U/L (46-116); Anion Gap 10.2 mmol/L (3-11); BUN 32 mg/dL (7-18); Bilirubin, Total 0.5 mg/dL (0.2-1.0); CO2 25.8 mmol/L (21.0-32.0); CREATININE 1.5 mg/dL (0.70-1.30); Calcium 9.8 mg/dL (8.5-10.1); Calculated LDL 83 mg/dL (<100); Chloride 104 mmol/L (98-107); Cholesterol 180 mg/dL (<200); Estimated GFR 44.81 (mL/min/1.73m2); Ferritin 49 ng/mL (26-388); Glucose 146 mg/dL (74-106); HDL Cholesterol 84 mg/dL (40-60); Potassium 4.5 mmol/L (3.5-5.1); Sodium 140 mmol/L (136-145); TSH 1.16 uIU/mL (0.36-3.74); Total Protein 6.8 g/dL (6.4-8.2); Triglyceride 68 mg/dL (<150)
[2021-10-24 05:16] LABS: Vitamin D 25 Total 64.4 ng/mL (30-100)
== END 2021-10-21 03:57 | disposition home or self-care (01) ==
LOC: LBO 03:56
PROVIDERS: PCP Internal Medicine; Visit Provider Internal Medicine
DX: E11.9 Type 2 diabetes mellitus without complications (principal); Z79.4 Long term (current) use of insulin; Z83.49 Family history of other endocrine, nutritional and metabolic diseases; D50.9 Iron deficiency anemia, unspecified; N18.31 Chronic kidney disease, stage 3a; E78.2 Mixed hyperlipidemia; E55.9 Vitamin D deficiency, unspecified
CPT/HCPCS: 36415; 80053; 80061; 82306; 81256; 82043; 82570; 82728; 83036; 83540; 83550; 84443; 85025

== ENCOUNTER 2021-11-01 01:29 | Outpatient (CLI) | payer MEDICARE, BC, SELFPAY ==
--- NOTE | 2021-11-01 10:00 | NS.NUTBLAN_ITS ---
Adrian returns for diabetes self management education. Wt: 184 lbs, his goal weight is 175 lbs. He reports walking 3.5 miles daily. He has lost over 50 lbs in last 3 years and has drastically cut his insulin prescription to 14 units of lantus daily ( 7 units Am and Pm), Leo. - Ambulatory Glucose Profile 10/19/21-11/01/21) Average Glucose: 169 mg/dl Time in Range: (70-180 mg/dl): 57% High BS (181-250 mg/dl): 37% Very high BS: (>250 mg/dl): 6% No hypoglycemia Glucose Variability: 30% Per AGP reports, blood sugars have been increasing in last two weeks- no longer meeting Targets. . Rj states no changes in diet or medications. Suspect stress has increased levels. In reviewing daily reports, blood sugars are normalizing in last 5 days. May benefit from Jardiance (SGLT2i) to aid in glycemic management without adding in more insulin. Rj is not interested in increasing insulin, as reduction in insulin is what helped in lose weight. Reviewed stress reduction techniques and strategies of lower blood sugars. Will follow up prn.
== END 2021-11-01 01:30 | disposition home or self-care (01) ==
LOC: DS 01:29
PROVIDERS: PCP Internal Medicine; Visit Provider Dietitian, Registered
DX: E11.9 Type 2 diabetes mellitus without complications (principal); Z71.3 Dietary counseling and surveillance; Z79.4 Long term (current) use of insulin
CPT/HCPCS: 97803

== ENCOUNTER 2021-12-27 00:58 | Outpatient (CLI) | payer MEDICARE, BC, SELFPAY ==
--- NOTE | 2021-12-27 13:00 | NS.NUTBLAN_ITS ---
Mr. Mclean returns for diabetes self management education. Wt: 179 lbs. He is at his goal weight and has lost a total of 54 lbs in last 3 years. He continues to walk daily and uses a pedometer- walks about 2-3 miles daily. Uses a Mirian 2 continuous glucose monitor Diet Recall: /2 ann for B, sandwich at L, well balanced meal at D DM meds: lantus 9 units AM, 7 units PM. Has increased AM dose by 2 units, Leo Ambulatory Glucose Profile: (12/27/21-12/13/21) Average Blood Sugar: 165 mg/dl Time in Range (70-180): 62% High BS (181-250): 35% >250 mg/dl: 3% no hypoglycemia Mr. Mclean has reduced his insulin dose over the years and seen a decrease in weight along with well controlled DM. In recent months, blood sugars are starting to increase and no longer meet glycemic goals. He is having hyperglycemia primarily after lunch and may be due to the whole grain bread he has been using lately. Recommend using Lite Bread with 3-4 ounces of protein such as turkey/cheese or tuna. Mr. Mclean is against increasing his basal insulin or taking meal time insulin. If diet does not reduce his glycemic excursions, recommend increasing long acting insulin or considering lunch time insulin. A non insulin treatment could be adding a SGLT2 such as Jardiance. Goal A1C is 8.5% in view of age and co morbidities. No follow up planned at this time.
== END 2021-12-27 00:59 | disposition home or self-care (01) ==
PROVIDERS: PCP Internal Medicine; Visit Provider Dietitian, Registered
DX: E11.65 Type 2 diabetes mellitus with hyperglycemia (principal); Z79.4 Long term (current) use of insulin; Z71.3 Dietary counseling and surveillance
CPT/HCPCS: 97803

== ENCOUNTER 2022-01-25 03:05 | Outpatient (CLI) | payer MEDICARE, BC, SELFPAY ==
[2022-01-25 09:47] LABS: Abs Immature Grans 0.03 10^3/uL (0.0-0.06); Absolute Basophil Count 0.05 10^3/uL (0.0-0.2); Absolute Eosinophil Count 0.86 10^3/uL (0.0-0.7); Absolute Lymphocyte Count 1.56 10^3/uL (1.2-3.4); Absolute Monocyte Count 0.72 10^3/uL (0.1-0.8); Absolute Neutrophil Count 4.84 10^3/uL (1.2-6.7); Basophils % 0.6; Eosinophils % 10.7; HCT 37.5 % (40.0-50.0); HGB 12.5 g/dL (13.5-17.5); Immature Grans % 0.4; Lymphocytes % 19.4; MCH 31.6 pg (27.0-33.0); MCHC 33.3 % (32.0-36.0); MCV 94.9 fL (80-95); Monocytes % 8.9; Nucleated RBC 0 %; Platelet Count 315 10^3/uL (130-400); RBC 3.95 10^6/uL (4.36-5.78); RDW 12.4 % (11.8-14.1); RDW-SD 43.6 fL; WBC 8.06 10^3/uL (4.4-10.8)
[2022-01-25 09:49] LABS: Bilirubin Negative (Negative); Blood Negative (Negative); Clarity Clear (Clear); Glucose Negative (Negative); Ketones Negative (Negative); Leukocyte Esterase Negative (Negative); Nitrite Negative (Negative); Specific Gravity 1.025 (1.005-1.025); Urobilinogen 0.2 EU/dL (Up TO 0.2); pH 5.5 (5-8)
[2022-01-25 11:01] LABS: ALT 23 U/L (16-63); AST 20 U/L (15-37); Albumin 3.8 g/dL (3.4-5.0); Alkaline Phosphatase 51 U/L (46-116); Anion Gap 9.3 mmol/L (3-11); BUN 33 mg/dL (7-18); Bilirubin, Total 0.5 mg/dL (0.2-1.0); CO2 26.7 mmol/L (21.0-32.0); CREATININE 1.6 mg/dL (0.70-1.30); Calcium 9.6 mg/dL (8.5-10.1); Chloride 105 mmol/L (98-107); Estimated GFR 41.59 (mL/min/1.73m2); Glucose 168 mg/dL (74-106); Potassium 4.2 mmol/L (3.5-5.1); Sodium 141 mmol/L (136-145); Total Protein 6.6 g/dL (6.4-8.2)
[2022-01-25 18:11] LABS: PSA, Diagnostic 5.2 ng/mL (<=6.5)
== END 2022-01-25 03:06 | disposition home or self-care (01) ==
LOC: LBO 03:06
PROVIDERS: PCP Internal Medicine; Visit Provider Urology
DX: E11.9 Type 2 diabetes mellitus without complications (principal); Z79.4 Long term (current) use of insulin; N40.1 Benign prostatic hyperplasia with lower urinary tract symptoms; R97.20 Elevated prostate specific antigen [PSA]
CPT/HCPCS: 36415; 80053; 81003; 83036; 84153; 85025

== ENCOUNTER 2022-03-28 02:46 | Outpatient (CLI) | payer MEDICARE, BC, SELFPAY ==
--- NOTE | 2022-03-28 14:43 | DIABASSESS_ITS ---
Date of service: 03/28/22 Time of Service: 14:43 Diabetes Note Reason for Visit: dm NOTE: Mr. Mclean returns for diabetes self management education. Wt: 176 lbs. Has lost over 55 lbs in last 3 years. Has reduced his total daily dose of insulin from 100 units down to 16 units lantus daily. Takes 9 units lantus Am, 7 units pm. No meal time insulin. Also takes Januvia. Ambulatory Glucose Profile (03/15/22-03/28/22) Landry 2 CGM Average Glucose: 153 mg/dl. 26.5% variability. 74% Time in Range (70-180), 26% high blood sugars (181-250). No hyperglycemia above 250 and no hypoglycemia. Meal Plan: oatmeal, toast, [place]ar[place] ann and egg. Lunch: sandwich. Dinner: well balanced Overall, Mr. Mclean is managing his diabetes well with improved glycemic control in comparison to 3 months ago. Continues to be very active with 6,000-10,000 steps daily. Meeting ideal glycemic targets with current lifestyle and insulin. No changes needed at this time. No follow up scheduled at this time. Recommend follow up in 6 months or prn. Time Spent in Nutritional Counseling and Treatment: 30
== END 2022-03-28 02:47 | disposition home or self-care (01) ==
LOC: DS 02:46
PROVIDERS: PCP Internal Medicine; Visit Provider Dietitian, Registered

== ENCOUNTER 2022-05-09 04:15 | Outpatient (CLI) | payer MEDICARE, BC, SELFPAY ==
--- NOTE | 2022-05-09 13:00 | NS.NUTBLAN_ITS ---
Adrian returns for diabetes self management education and data download. Ambulatory Glucose Profile (05/09/22-04/25/22) Average BS: 139 mg/dl Time in Range (70-180): 83% 181-250 mg/dl: 17% no hypo glycemia no values > 250 mg/dl DM meds: 9 units AM, 6 units PM. Adrian continues to have excellent blood sugars. He has reduced his night time insulin to 6 units and continues with excellent control. No changes needed at this time. Follow up recommended as needed.
== END 2022-05-09 04:16 | disposition home or self-care (01) ==
LOC: DS 04:15
PROVIDERS: PCP Internal Medicine; Visit Provider Dietitian, Registered
DX: E11.9 Type 2 diabetes mellitus without complications (principal); Z79.4 Long term (current) use of insulin; Z71.3 Dietary counseling and surveillance
CPT/HCPCS: 97803

== ENCOUNTER 2022-07-19 02:58 | Outpatient (CLI) | payer MEDICARE, BC, SELFPAY ==
[2022-07-19 13:28] LABS: HGB 11.7 g/dL (13.5-17.5); MCH 31.7 pg (27.0-33.0); MCHC 33.4 % (32.0-36.0); MCV 95 fL (80-95); MPV 10.7 fL (8.0-11.0); Platelet Count 256 10^3/uL (130-400); RBC 3.69 10^6/uL (4.36-5.78); RDW 12.4 % (11.8-14.1); RDW-SD 43.4 fL; WBC 9.21 10^3/uL (4.4-10.8)
[2022-07-19 13:40] LABS: COMMENT (LAB VIEW ONLY) 85.58 mg/dL; PROTEIN 13.1 mg/dL; Prot/Crea Ur Ratio 0.15
[2022-07-19 13:42] LABS: Albumin 3.6 g/dL (3.4-5.0); Anion Gap 7.7 mmol/L (3-11); BUN 30 mg/dL (7-18); CO2 25.3 mmol/L (21.0-32.0); CREATININE 1.4 mg/dL (0.70-1.30); Calcium 9.5 mg/dL (8.5-10.1); Chloride 104 mmol/L (98-107); Estimated GFR 50.18 (mL/min/1.73m2); Glucose 212 mg/dL (74-106); PHOSPHORUS 2.6 mg/dL (2.6-4.7); Potassium 4.4 mmol/L (3.5-5.1); Sodium 137 mmol/L (136-145)
[2022-07-19 13:59] LABS: Bilirubin Negative (Negative); Blood Negative (Negative); Clarity Clear (Clear); Glucose 250 mg/dL (Negative); Ketones Negative (Negative); Leukocyte Esterase Negative (Negative); Nitrite Negative (Negative); Urobilinogen 0.2 EU/dL (Up TO 0.2); pH 6.5 (5-8)
[2022-07-31 10:05] LABS: Parathyroid Hormone,Intact 50 pg/mL (19-88)
== END 2022-07-19 02:59 | disposition home or self-care (01) ==
LOC: LBO 02:58
PROVIDERS: PCP Internal Medicine
DX: I10 Essential (primary) hypertension (principal); D63.1 Anemia in chronic kidney disease; N18.30 Chronic kidney disease, stage 3 unspecified; R82.998 Other abnormal findings in urine
CPT/HCPCS: 36415; 80069; 85027; 81003; 82565; 83970; 84156

== ENCOUNTER 2022-07-24 03:12 | Outpatient (CLI) | payer MEDICARE, BC, SELFPAY ==
--- NOTE | 2022-07-24 11:00 | NS.NUTBLAN_ITS ---
Mr. Mclean returns for diabetes self management education and to down load this Mirian 2 continuous glucose monitor. Dm Meds: has reduced his lantus to 6 units once daily. Ambulatory Glucose Profile (07/24/22-07/11/22) Average glucose: 171 mg/dl up from 139mg/dl 10 weeks ago Time In Range (70-180): 57% down from 83% 181-250 mg/dl: 40% up from 17% >250 mg/dl: 3% up from 0% no hypoglycemic events Mr. Mclean continues to walk 3 miles per day and follows a carb consistent meal plan. He reports that he reduced his PM lantus from 8 units to 6 units in hopes that it would help him lose weight. In last 10 weeks, weight has been stable however, glycemic control has deteriorated and now not at target. Recommend increasing PM lantus to 7 units and to continue with life style behaviors of daily exercise and carb controlled diet. Follow up scheduled 09/25/22 at 11 am.
== END 2022-07-24 03:13 | disposition home or self-care (01) ==
LOC: DS 03:13
PROVIDERS: PCP Internal Medicine; Visit Provider Dietitian, Registered
DX: E11.9 Type 2 diabetes mellitus without complications (principal); Z79.4 Long term (current) use of insulin; Z71.3 Dietary counseling and surveillance
CPT/HCPCS: 97803

== ENCOUNTER 2022-09-14 04:03 | Outpatient (CLI) | payer MEDICARE, BC, SELFPAY ==
[2022-09-14 10:09] LABS: Abs Immature Grans 0.04 10^3/uL (0.0-0.06); Absolute Basophil Count 0.02 10^3/uL (0.0-0.2); Absolute Lymphocyte Count 1.15 10^3/uL (1.2-3.4); Basophils % 0.2; Eosinophils % 3.8; HCT 37.1 % (40.0-50.0); HGB 12.7 g/dL (13.5-17.5); Immature Grans % 0.3; Lymphocytes % 10.1; MCH 31.9 pg (27.0-33.0); MCHC 34.2 % (32.0-36.0); MCV 93 fL (80-95); MPV 9.9 fL (8.0-11.0); Monocytes % 7.3; Neutrophils % 78.3; Platelet Count 291 10^3/uL (130-400); RBC 3.98 10^6/uL (4.36-5.78); RDW 12.2 % (11.8-14.1); RDW-SD 41.6 fL; WBC 11.43 10^3/uL (4.4-10.8)
[2022-09-14 10:12] LABS: Absolute Eosinophil Count 0.43 10^3/uL (0.0-0.7); Absolute Monocyte Count 0.83 10^3/uL (0.1-0.8); Absolute Neutrophil Count 8.95 10^3/uL (1.2-6.7)
[2022-09-14 10:26] LABS: Hemoglobin A1C 6.1 % (<5.7)
[2022-09-14 11:03] LABS: COMMENT (LAB VIEW ONLY) 149.55 mg/dL; Microalb ug/mg Crea 4.6 ug/mg Cr
[2022-09-14 11:04] LABS: ALT 23 U/L (16-63); AST 18 U/L (15-37); Albumin 3.6 g/dL (3.4-5.0); Alkaline Phosphatase 50 U/L (46-116); Anion Gap 7.3 mmol/L (3-11); BUN 35 mg/dL (7-18); Bilirubin, Total 0.7 mg/dL (0.2-1.0); CO2 26.7 mmol/L (21.0-32.0); CREATININE 1.7 mg/dL (0.70-1.30); Calcium 9.7 mg/dL (8.5-10.1); Calculated LDL 54 mg/dL (<100); Chloride 101 mmol/L (98-107); Cholesterol 139 mg/dL (<200); Estimated GFR 39.75 (mL/min/1.73m2); Glucose 185 mg/dL (74-106); HDL Cholesterol 70 mg/dL (40-60); Potassium 4.1 mmol/L (3.5-5.1); Sodium 135 mmol/L (136-145); Triglyceride 75 mg/dL (<150)
== END 2022-09-14 04:04 | disposition home or self-care (01) ==
PROVIDERS: PCP Internal Medicine
DX: I10 Essential (primary) hypertension (principal); E11.9 Type 2 diabetes mellitus without complications; Z79.4 Long term (current) use of insulin; N18.31 Chronic kidney disease, stage 3a
CPT/HCPCS: 36415; 80053; 80061; 82043; 82570; 83036; 85025

== ENCOUNTER 2023-01-25 02:07 | Outpatient (CLI) | payer MEDICARE, BC, SELFPAY ==
--- NOTE | 2023-01-25 13:00 | NS.NUTBLAN_ITS ---
Adrian returns for diabetes self management education. Wt: 174 lbs Has lost over 60 lbs in last last couple of years by reducing portions, increasing activity and reducing insulin dosage. Meds include 7 units lantus in AM. Januvia, 240 mg verapmil Concerns: 1. has been having higher blood sugar readings since using prednisone. No steriods x 14 days- sugars are going back to normal 2. has had several readings of low heart rage < 50 beats per minute- some low pressure readings as well- this has reduced his ability to exercise 3. heart burn- just started omeprzole Ambulatory Glucose Profile (January 13-2022) Average Blood Sugar: 187 mg/dl Not at target Time in Range: 47% Below target of >70% 181-250 mg/dl: 42% Above target of <25% >250 mg/dl: 11% Above target of < 5% Mr. Mclean complains of feeling tired and cold much of the time. Is frustrated that he cannot do his typical 3 mile walk now that weather improved. Has provided measurements of BP and heart rate from past week with several readings that are very low. Recently went to Urgent care and reports EKG wnl. Reviewed importance of follow up with PCP - has appointment in March. Low heart rate puts Mr. Mclean at risk for syncope, falls, etc. Reviewed glycemic data. No change in diet and did not increase lantus as recommended at last visit to help get numbers to goal. At this time I do not want to recommend increasing insulin until heart rate addressed. Suspect low HR due to BP meds- Mr. Mclean states they have not been reduced since him losing > 50 lbs. Plan: 1. Mr. Mclean to follow up with PCP yasmany and get earlier appointment 2. continue to follow BP, HR and glycemic date 3. Will follow up by phone in 1 week.
== END 2023-01-25 02:08 | disposition home or self-care (01) ==
LOC: DS 02:07
PROVIDERS: PCP Internal Medicine; Visit Provider Dietitian, Registered
DX: E11.9 Type 2 diabetes mellitus without complications (principal); Z79.4 Long term (current) use of insulin; Z71.3 Dietary counseling and surveillance; R00.1 Bradycardia, unspecified
CPT/HCPCS: 97803

== ENCOUNTER 2023-02-06 14:03 | Outpatient (CLI) | payer MEDICARE, BC, SELFPAY ==
[2023-02-06 16:46] LABS: HCT 33.7 % (40.0-50.0); HGB 11.4 g/dL (13.5-17.5); MCH 31.4 pg (27.0-33.0); MCHC 33.8 % (32.0-36.0); MCV 93 fL (80-95); MPV 10.6 fL (8.0-11.0); Platelet Count 308 10^3/uL (130-400); RBC 3.63 10^6/uL (4.36-5.78); RDW 12.3 % (11.8-14.1); RDW-SD 42.3 fL; WBC 10.29 10^3/uL (4.4-10.8)
[2023-02-06 16:56] LABS: COMMENT (LAB VIEW ONLY) 115.86 mg/dL; PROTEIN 17.1 mg/dL; Prot/Crea Ur Ratio 0.14
[2023-02-06 16:57] LABS: Bilirubin Negative (Negative); Blood Negative (Negative); Clarity Cloudy (Clear); Glucose 100 mg/dL (Negative); Ketones Negative (Negative); Leukocyte Esterase Moderate (Negative); Nitrite Positive (Negative); Urobilinogen 0.2 mg/dL (Up to 0.2)
[2023-02-06 17:13] LABS: Albumin 3.6 g/dL (3.4-5.0); BUN 33 mg/dL (7-18); Bacteria Many HPF (Negative); CREATININE 1.8 mg/dL (0.70-1.30); Calcium 9.3 mg/dL (8.5-10.1); Chloride 105 mmol/L (98-107); Epithelial Cells Few HPF (Negative); Estimated GFR 36.89 (mL/min/1.73m2); Ferritin 32 ng/mL (26-388); Glucose 183 mg/dL (74-106); PHOSPHORUS 3.2 mg/dL (2.6-4.7); Potassium 4.5 mmol/L (3.5-5.1); RBC 0-2 HPF (0-2); Sodium 139 mmol/L (136-145); WBC 20-50 HPF (0-5)
[2023-02-06 17:14] LABS: C & S Indicated? Yes; Casts Negative LPF (Negative); Crystals Negative HPF (Negative); Mucus Negative (Negative)
[2023-02-06 17:21] LABS: Iron 107 ug/dL (65-175); Total Iron Binding Capacity 391 ug/dL (250-450); Transferrin Sat 27 % (20-55)
[2023-02-08 10:36] LABS: PSA, Diagnostic 3.4 ng/mL (<=6.5)
[2023-02-08 10:39] LABS: Parathyroid Hormone,Intact 50 pg/mL (19-88)
== END 2023-02-06 14:04 | disposition home or self-care (01) ==
LOC: LBO 14:04
PROVIDERS: PCP Internal Medicine; Visit Provider Internal Medicine Nephrology
DX: I10 Essential (primary) hypertension (principal); E78.5 Hyperlipidemia, unspecified; N18.30 Chronic kidney disease, stage 3 unspecified; D64.9 Anemia, unspecified; J45.909 Unspecified asthma, uncomplicated; R97.20 Elevated prostate specific antigen [PSA]; N40.1 Benign prostatic hyperplasia with lower urinary tract symptoms; R82.998 Other abnormal findings in urine
CPT/HCPCS: 36415; 80069; 85027; 81003; 81015; 82565; 82728; 83540; 83550; 83970; 84153; 84156; 85025; 87086

== ENCOUNTER 2023-02-19 18:47 | Outpatient (CLI) | payer MEDICARE, BC, SELFPAY ==
[2023-02-19 17:32] LABS: Hemoglobin A1C 6.5 % (<5.7)
--- NOTE | 2023-02-27 10:04 | NS.NUTBLAN_ITS ---
Date of service: 02/27/23 Time of Service: 10:04 Nutritional Consult ASSESSMENT: Adrian returns for diabetes self management education. He reports that he has appt. with his PCP 03/21/23. He continues to have heart rates < 50 beats/min and feeling tired and cold. Did not call his PCP last month regarding low heart rates and fatigue. PMH: Dm2, CKD, HTN Wt: 175 lbs. DM meds: 7 units lantus daily. mariah Bailey Ambulatory Glucose Profile (February 13-2022) Average Glucose: 201 mg/dl up from 187 mg/dl last month Time in Range (70-180): 44% 180-250 mg/dl: 34% >250 mg/dl: 22% * Estimated A1C (GMI): 8.1% Diet Recall: breakfast sandwich for B, lunch: soup and 1/2 sandwich and dinner: well balanced- following diabetic diet principles Exercise: starting to walk daily 10-20 minutes but feels really tired. NUTRITIONAL DIAGNOSIS: Poorly controlled DM 2 despite no changes in diet or medication INTERVENTION: Recommend increase lantus to 9 units daily and to monitor blood sugars. If not in range at least 70% of time, will need to adjust meal time and long acting insulin MONITORING AND EVALUATION: Mr. Mclean to follow up with PCP yasmany re: fatigue and low heart rate Adjust long acting insulin for improved glycemic management Follow up 04/02/23 at 1 pm. Time Spent in Nutritional Counseling and Treatment: 30
== END 2023-02-19 18:48 | disposition home or self-care (01) ==
LOC: LBO 18:50
PROVIDERS: PCP Internal Medicine; Visit Provider Urology
DX: E11.9 Type 2 diabetes mellitus without complications (principal)
CPT/HCPCS: 36415; 83036

== ENCOUNTER 2023-03-06 11:13 | Outpatient (CLI) | payer MEDICARE, BC, SELFPAY ==
[2023-03-06 09:21] LABS: Abs Immature Grans 0.02 10^3/uL (0.0-0.06); Absolute Basophil Count 0.08 10^3/uL (0.0-0.2); Absolute Eosinophil Count 1.57 10^3/uL (0.0-0.7); Absolute Lymphocyte Count 1.54 10^3/uL (1.2-3.4); Absolute Monocyte Count 0.74 10^3/uL (0.1-0.8); Absolute Neutrophil Count 5.54 10^3/uL (1.2-6.7); Basophils % 0.8; Eosinophils % 16.5; HCT 36.5 % (40.0-50.0); Immature Grans % 0.2; Lymphocytes % 16.2; MCH 30.8 pg (27.0-33.0); MCHC 32.9 % (32.0-36.0); MCV 94 fL (80-95); MPV 10.5 fL (8.0-11.0); Monocytes % 7.8; Neutrophils % 58.5; Platelet Count 309 10^3/uL (130-400); RBC 3.89 10^6/uL (4.36-5.78); RDW 12.4 % (11.8-14.1); WBC 9.49 10^3/uL (4.4-10.8)
[2023-03-06 09:24] LABS: Bilirubin Negative (Negative); Blood Trace-intact (Negative); Clarity Cloudy (Clear); Glucose Negative (Negative); Ketones Negative (Negative); Leukocyte Esterase Moderate (Negative); Nitrite Negative (Negative); Urobilinogen 0.2 mg/dL (Up to 0.2)
[2023-03-06 09:33] LABS: Bacteria Few HPF (Negative); C & S Indicated? Yes; Casts Negative LPF (Negative); Crystals Negative HPF (Negative); Epithelial Cells Rare HPF (Negative); Mucus Negative (Negative); WBC 20-50 HPF (0-5)
[2023-03-06 10:21] LABS: ALT 23 U/L (16-63); AST 25 U/L (15-37); Albumin 3.8 g/dL (3.4-5.0); Alkaline Phosphatase 56 U/L (46-116); Anion Gap 10.5 mmol/L (3-11); BUN 33 mg/dL (7-18); Bilirubin, Total 0.5 mg/dL (0.2-1.0); CO2 26.5 mmol/L (21.0-32.0); CREATININE 1.6 mg/dL (0.70-1.30); Calcium 9.9 mg/dL (8.5-10.1); Chloride 104 mmol/L (98-107); Estimated GFR 42.49 (mL/min/1.73m2); Ferritin 51 ng/mL (26-388); Glucose 175 mg/dL (74-106); Potassium 4.2 mmol/L (3.5-5.1); Sodium 141 mmol/L (136-145); TSH (W/Ref FT4) 1.74 uIU/mL (0.36-3.74); Total Protein 7.2 g/dL (6.4-8.2)
[2023-03-06 10:29] LABS: Iron 132 ug/dL (65-175); Total Iron Binding Capacity 423 ug/dL (250-450)
[2023-03-06 12:12] LABS: Hemoglobin A1C 6.4 % (<5.7)
== END 2023-03-06 11:14 | disposition home or self-care (01) ==
LOC: LBO 11:15
PROVIDERS: PCP Internal Medicine; Visit Provider Student in an Organized Health Care Education/Training Program
DX: E08.36 Diabetes mellitus due to underlying condition with diabetic cataract (principal); R55 Syncope and collapse; D50.9 Iron deficiency anemia, unspecified; I10 Essential (primary) hypertension; Z79.4 Long term (current) use of insulin
CPT/HCPCS: 36415; 80053; 81003; 81015; 82728; 83036; 83540; 83550; 84443; 85025; 87086

== ENCOUNTER 2023-03-07 16:12 | Outpatient (CLI) | payer MEDICARE, BC, SELFPAY ==
--- NOTE | 2023-03-07 | DI.CT_ITS ---
Exam(s) CT HEAD WO EXAM: CT HEAD WO CLINICAL HISTORY: BRIEF LOSS OF CONSCIOUSNESS, R55, SYNCOPE, RECURRENT MEMORY LOSS, DIZZINESS. TECHNIQUE: Imaging Protocol: Axial computed tomography images with coronal and sagittal reformatted images were created and reviewed COMPARISON: No exams were available for comparison FINDINGS: There are no skull fractures. There is no fluid in the visualized paranasal sinuses. There is no evidence of intracranial hemorrhage, mass effect, or shift of midline structures. There are no extra-axial fluid collections. The ventricles are not enlarged or shifted and there is no blo od within the ventricular system nor within the basal cisterns. IMPRESSION: No acute intracranial findings on this noninfused CT scan of the brain. RADIATION DOSE DELIVERED: 760.74mGy.cm Total DLP DATA REPOSITORY: All CT scans at this facility are submitted to the National Radiology Data Registry (NRDR) Dose Index Registry (DIR) with the [employer] (ACR). RADIATION OPTIMIZATION: All CT scans at this facility use at least one of these dose optimization te chniques: automated exposure control; mA and/or kV adjustment per patient size (includes targeted exa ms where dose is matched to clinical indication); or iterative reconstruction.
== END 2023-03-07 16:32 ==
PROVIDERS: PCP Internal Medicine; Visit Provider Student in an Organized Health Care Education/Training Program
DX: R55 Syncope and collapse (principal)
CPT/HCPCS: 70450

== ENCOUNTER 2023-03-08 14:48 | Emergency (ER) | payer MEDICARE, BC, SELFPAY ==
--- NOTE | 2023-03-08 | DI.CT_ITS ---
Exam(s) CT RENAL COLIC WO EXAM: CT RENAL COLIC WO CLINICAL HISTORY: uti, ckd,. TECHNIQUE: Imaging Protocol: Axial computed tomography images with coronal and sagittal reformatted images were created and reviewed. COMPARISON: CT CHEST WITH CONTRAST from 08/17/2016 FINDINGS: The examination is limited due to patient motion artifact. ABDOMEN: Lung Bases: Normal where visualized. Liver: The visualized liver is unremarkable. No measurable mass. Gallbladder and biliary tract: Status post cholecystectomy. No significant biliary ductal dilatation . Pancreas: Normal density, no abnormal calcifications or inflammatory process. Spleen: The visualized spleen is unremarkable. Kidneys: Normal size, contour and axis.No radiodense stones or obstructive uropathy. No masses seen. Vascular calcifications are seen in the kidneys. The calcifications in the renal pelvis correspond t o vascular calcifications seen on the CT scan of the chest from 2016. Adrenal glands: No mass is seen. Lymph nodes: Within normal limits. Abdominal Aorta: Abdominal portion non-dilated. Atherosclerosis. PELVIS: Bladder:There are bladder stones present. The largest measures 7 mm. No bladder wall thickening. Bowel: There is diverticulosis seen in the colon, but no evidence of acute diverticulitis. Postsurgi britton changes are seen in the gastroesophageal junction. Appendix is unremarkable. There is no eviden ce of bowel wall thickening or obstruction. Peritoneal cavity: No ascites, collection or mesenteric inflammatory response. No free air. Reproductive organs: There is marked enlargement of the prostate gland. Bones: Within normal limits. The patient has a right total hip replacement. Soft Tissues: Skin lenin are seen in the midline of the abdomen wall. IMPRESSION: 1. No evidence of nephrolithiasis or hydronephrosis. 2. Two bladder stones. The largest measures 7 mm. No bladder wall thickening. 3. Marked enlargement of the prostate gland. 4. Incidental findings in the abdomen and pelvis as described above. 5. Findings were discussed with Madeleine Munguia at 5:10 p.m. on 03/08/2023. RADIATION DOSE DELIVERED: 870.15mGy.cm Total DLP DATA REPOSITORY: All CT scans at this facility are submitted to the National Radiology Data Registry (NRDR) Dose Index Registry (DIR) with the [employer] (ACR). RADIATION OPTIMIZATION: All CT scans at this facility use at least one of these dose optimization te chniques: automated exposure control; mA and/or kV adjustment per patient size (includes targeted exa ms where dose is matched to clinical indication); or iterative reconstruction.
--- NOTE | 2023-03-08 14:45 | RT.EKG_ITS ---
APPROVED REPORT Exam: Resting ECG Reason for Exam: dizziness Patient Location: E HR:75 bpm ECG Measurements Heart Rate 75 AXIS MI 261 P 0 QRSd 95 QRS 35 QT 396 T 16 QTc 444 Conclusion Sinus rhythm...normal P axis, V-rate 60- 99 Prolonged MI interval...MI >220, V-rate 50- 90. Sinus. Normal axis. Prolonged MI. Reassuring QTc. No STEMI. I have reviewed and interpreted ECG and agree with software generated interpretation.
[2023-03-08 15:01] VITALS: BP 148/83; PULSE 78; RESP 18; TEMP 36.4; O2SAT 99
[2023-03-08] MEDS: cefTRIAXone 1 GM/50 ML BAG IVPB (16:46)
--- NOTE | 2023-03-08 17:50 | W.ED.GENAD ---
Discharge Plan Disposition Patient Disposition: Home Condition: Stable Discharge Details Clinical Impression: Urinary tract infection Primary Care Provider: Jase Cutler ED Provider: Madeleine Munguia Home Meds and New Rx's Prescriptions: New cefpodoxime 200 mg tablet 200 mg PO BID Qty: 14 0RF Rx Instructions: must administer with a meal/food Continued enalapril maleate 5 MG tablet 5 mg PO DAILY fexofenadine [Lizeth Allergy] 60 MG tablet 60 mg PO DAILY simvastatin 10 MG tablet 10 mg PO HS aspirin 81 MG tablet,delayed release (DR/EC) 162 mg PO DAILY verapamil 240 MG tablet extended release 240 mg PO DAILY multivitamin 1 EACH capsule 1 tab PO DAILY insulin aspart U-100 [Novolog PenFill U-100 Insulin] 100 UNIT/ML cartridge 20 units SQ TID fish oil-dha-epa 1 EACH capsule 1 cap PO DAILY fenofibrate nanocrystallized [Tricor] 145 MG tablet 145 mg PO DAILY sitagliptin phosphate [Januvia] 50 MG tablet 50 mg PO DAILY insulin glargine [Lantus Solostar U-100 Insulin] 100 UNIT/ML insulin pen 18 units SQ BID ferrous sulfate 325 MG tablet 325 mg PO DAILY magnesium 250 MG tablet 500 mg PO DAILY Patient Comments: 07/20/16-patient states he no longer take this.kg cholecalciferol (vitamin D3) 1,000 UNITS tablet 2 tab PO BID Patient Comments: Pt takes 2 in am and 1 in PM levofloxacin 500 MG tablet 500 mg PO DAILY Qty: 7 0RF Patient Comments: 07/20/16-patient states he is done taking this med.kg acetaminophen [Mapap Extra Strength] 500 MG tablet 2,000 mg PO DAILY Discharge Instructions Instructions: Urinary Tract Infection in Men (ED) Additional Instructions: take antibiotics as directed even in you feel better drink 6-8 glasses of water daily to stay well hydrated. wear court monitor as directed when it arrives by mail. keep scheduled follow up appointments Referrals: Jase Cutler [Primary Care Provider] - Discharge Data Discharge Date/Time-TO BE ENTERED AT DEPARTURE: 03/08/23 19:08 Medical Decision Making <Madeleine Munguia NP - Last Filed: 03/10/23 15:17> Outpatient lab and head CT reviewed and unremarkable except urine which is growing greater than 100,000 colony of gram-positive. Has had a history of staph urinary tract infection not MRSA. Obtained postvoid bladder scan that showed [address] scan renal shows no ureteral stone, does have bladder stones. Based on previous culture we will give ceftriaxone 1 g IV piggyback and will discharge on cephalexin while culture report pending Medical Records Medical records reviewed: Yes I reviewed the patient's medical records. Lab Data Lab results reviewed: Yes I reviewed the patient's lab results. ECG Data Attestation: I personally reviewed and interpreted this ECG (s) as follows: <Isi Thompson DO - Last Filed: 03/19/23 15:33> Outpatient lab and head CT reviewed and unremarkable except urine which is growing greater than 100,000 colony of gram-positive. Has had a history of staph urinary tract infection not MRSA. Obtained postvoid bladder scan that showed [address] scan renal shows no ureteral stone, does have bladder stones. Based on previous culture we will give ceftriaxone 1 g IV piggyback and will discharge on cephalexin while culture report pending Dr. Thompson Pt not seen or examined by me but I was available for consult if needed. HPI <Madeleine Munguia NP - Last Filed: 03/10/23 15:17> General Mode of arrival: ambulatory. Date/Time Provider Initiated Documentation: 03/08/23 15:10. Limitations to Documentation: no limitations. Information obtained by: patient. HPI Narrative: Patient presents to the emergency department for evaluation of a syncopal episode 4 days ago and now intermittent subsequent lightheadedness. He has seen his primary care provider and has had outpatient lab work and head CT. Review of his outpatient diagnostics and lab shows urinary tract infection growing greater than 100,000 colony gram-positive. He has had a history of salter sensitive Staph aureus in the past. Related Data Home Medications Medication Instructions Recorded Confirmed aspirin 81 mg tablet,delayed 162 mg PO DAILY 11/06/14 07/19/16 release enalapril maleate 5 mg tablet 5 mg PO DAILY 11/06/14 07/19/16 fenofibrate nanocrystallized 145 145 mg PO DAILY 11/06/14 07/19/16 mg tablet (Tricor) fexofenadine 60 mg tablet (Lizeth 60 mg PO DAILY 11/06/14 07/19/16 Allergy) fish oil-dha-epa 1,200 mg-144 1 cap PO DAILY 11/06/14 07/19/16 mg-216 mg capsule insulin aspart U-100 100 unit/mL 20 units SQ TID 11/06/14 07/19/16 subcutaneous cartridge (Novolog PenFill U-100 Insulin aspart) insulin glargine 100 unit/mL (3 18 units SQ BID 11/06/14 07/19/16 mL) subcutaneous pen (Lantus Solostar U-100 Insulin) multivitamin 1 tab PO DAILY 11/06/14 07/19/16 simvastatin 10 mg tablet 10 mg PO HS 11/06/14 07/19/16 sitagliptin phosphate 50 mg tablet 50 mg PO DAILY 11/06/14 07/19/16 (Januvia) verapamil 240 mg tablet,extended 240 mg PO DAILY 11/06/14 07/19/16 release cholecalciferol (vitamin D3) 25 2 tab PO BID 06/21/16 07/19/16 mcg (1,000 unit) tablet ferrous sulfate 325 mg (65 mg 325 mg PO DAILY 06/21/16 07/19/16 iron) tablet levofloxacin 500 mg tablet 500 mg PO DAILY ##7 06/21/16 07/19/16 magnesium 250 mg tablet 500 mg PO DAILY 06/21/16 07/19/16 acetaminophen 500 mg tablet (Mapap 2,000 mg PO DAILY 07/19/16 07/19/16 Extra Strength) cefpodoxime 200 mg tablet 200 mg PO BID #14 tabs 03/08/23 Previous Rx's Medication Instructions Recorded levofloxacin 500 mg tablet 500 mg PO DAILY ##7 06/21/16 cefpodoxime 200 mg tablet 200 mg PO BID #14 tabs 03/08/23 Allergies Allergy/AdvReac Type Severity Reaction Status Date / Time venom-honey bee Allergy Swelling/Ed Verified 07/22/16 03:09 [bee venom (honey bee)] wes General Stated Complaint: Dizzy/Sync TOMER: 3 Review of Systems <Madeleine Munguia NP - Last Filed: 03/10/23 15:17> All systems reviewed & are unremarkable except as noted in HPI and below PFSH <Madeleine Munguia NP - Last Filed: 03/10/23 15:17> All Active Problems (Updated 03/08/23 @ 18:49 by Madeleine Munguia NP) Diabetes mellitus, type II (Chronic) a. on insulin, premeal and twice daily Lantus, with excellent control; Hgb A1c 6.1 CKD (chronic kidney disease) (Chronic) a. most recent documented creatinine 1.5, followed by Nephrology Hypertension (Chronic) a. he states his systolic BPs tend to run in the 150s Asthma (Chronic) Benign prostatic hypertrophy (Chronic) a. PSA 6.0 PMR (polymyalgia rheumatica) (Chronic) a. diagnosed 10/2014, currently on tapering dose of Prednisone Fracture of femoral neck, right (Acute 11/13/14) a. s/p right cementless ARMIN H/O surgical procedure (Chronic) a. s/p right cementless ARMIN for femoral neck fx Urinary tract infection (Acute) Surgical History (Updated 12/02/14 @ 10:38 by Mery العراقي) Arthroplasty (11/08/14) RIGHT TOTAL HIP REPLACEMENT S/P FRACTURE/DREISBACH Social History Smoking/Tobacco Use Status: Never Smoking risk assessment performed?: Yes Drug use: Never Do you feel safe at home: Yes Do you feel safe in your relationship?: Yes Exam <Madeleine Munguia NP - Last Filed: 03/10/23 15:17> Const General: cooperative, healthy appearing, comfortable and no acute distress Nutritional Appearance: average body habitus Orientation: alert, awake and oriented x3 [facility] Head: normal to inspection, normocephalic and atraumatic Mouth: oral mucosae normal Neck Neck: normal visual inspection and full ROM Chest Chest: normal inspection of the chest Resp Effort & Inspection: normal respiratory effort Auscultation: clear to auscultation bilaterally Cardio Rate: regular rate Rhythm: regular rhythm GI Inspection: normal to inspection Palpation: soft Skin General skin exam: no rashes or lesions noted Neuro General: patient alert, patient awake, patient oriented x3 and no focal motor deficits Speech: speech normal Gait: normal gait Motor: muscle tone normal throughout Extrem General: normal to inspection and full ROM Course <Madeleine Munguia NP - Last Filed: 03/10/23 15:17> Vital Signs Vital signs: Vital Signs Temperature 36.4 C L 03/08/23 15:01 Pulse 78 03/08/23 15:01 Respiratory Rate 18 03/08/23 15:01 Blood Pressure 148/83 H 03/08/23 15:01 Pulse Oximetry 99 03/08/23 15:01 Temperature 36.4 C L 03/08/23 15:01 Temperature Source Oral 03/08/23 15:01 Pulse 78 03/08/23 15:01 Respiratory Rate 18 03/08/23 15:01 Respiratory Effort Normal, Non-Labored 03/08/23 15:45 Respiratory Depth Normal 03/08/23 15:45 Respiratory Pattern Normal 03/08/23 15:45 Blood Pressure 148/83 H 03/08/23 15:01 Blood Pressure Position Sitting 03/08/23 15:01 Pulse Oximetry 99 03/08/23 15:01 Oxygen Delivery Method Room Air 03/08/23 15:01 Oxygen Flow Rate 0 03/08/23 15:01 Pain Level 0 03/08/23 15:01
[2023-03-08 18:01] VITALS: BP 138/72; BP 151/70; BP 169/68; PULSE 65; PULSE 67; PULSE 68
[2023-03-08 19:08] VITALS: BP 138/72; PULSE 72; RESP 22; TEMP 36.7; O2SAT 98
== END 2023-03-08 19:08 | disposition home or self-care (01) ==
PROVIDERS: Emergency Provider Nurse Practitioner Acute Care; PCP Student in an Organized Health Care Education/Training Program
DX: N39.0 Urinary tract infection, site not specified (principal); R42 Dizziness and giddiness
CPT/HCPCS: 51798; 93005; 96365; 99284; 74176; 93010; J0696

== ENCOUNTER 2023-03-20 01:52 | Outpatient (CLI) | payer MEDICARE, BC, SELFPAY ==
--- NOTE | 2023-03-20 | DI.US_ITS ---
Exam(s) US CAROTID EXAM: US CAROTID CLINICAL HISTORY: BRIEF LOC,R55,SYNCOPE,MEMORY LOSS, DIZZINESS. TECHNIQUE: Ultrasound carotids performed using grayscale, color-flow, and spectral Doppler imaging. COMPARISON: No exams were available for comparison FINDINGS: RIGHT CAROTID ARTERY: Plaque: [id number] calcific plaque involving the CCA, ECA and ICA proximally. Velocity elevation: None. LEFT CAROTID ARTERY: Plaque: [id number] intimal thickening in the left proximal CCA with mild calcific plaque noted. Velocity elevation: None. VERTEBRAL ARTERIES: Antegrade flow. Measurements: R Bulb: 76.3 cm/s PS / 11.5 cm/s ED R CCA: 91.9 cm/s PS / 11.5 cm/s ED R ECA: 106.5 cm/s PS / 8.5 cm/s ED R ICA Prox: 121.8 cm/s PS / 15 cm/s ED R ICA Mid: 89.1 cm/s PS / 12.9 cm/s ED R ICA Distal: 86.9 cm/s PS /12.9 cm/s ED R Vert: 53 cm/s PS / 11.2 cm/s ED R SVR: 1.3 R DVR: 1.3 L Bulb: 85.1 cm/s PS / 13 cm/s ED L CCA: 105 cm/s PS / 16.6 cm/s ED L ECA: 100.6 cm/s PS / 7 cm/s ED L ICA Prox: 112.2 cm/s PS / 18.4 cm/s ED L ICA Mid: 105 cm/s PS / 20 cm/s ED L ICA Distal: 81 cm/s PS / 20 cm/s ED L Vert: 69.6 cm/s PS / 17.7 cm/s ED L SVR: 1.1 L DVR: 1.1 IMPRESSION: No evidence for hemodynamically significant carotid stenosis. Criteria for Carotid Stenosis: Normal: ICA PSV <125 cm/s no plaque or intimal thickening is visible. <50% stenosis: ICA PSV <125 cm/s and plaque or intimal thickening is visible. 50-69% stenosis: ICA PSV is 125-250 cm/s and plaque is visible. >70% stenosis to near occlusion: ICA PSV >250 cm/s with visible plaque and luminal narrowing. DATA REPOSITORY:
== END 2023-03-20 02:12 ==
LOC: DI 01:52
PROVIDERS: PCP Student in an Organized Health Care Education/Training Program; Visit Provider Student in an Organized Health Care Education/Training Program
DX: R55 Syncope and collapse (principal)
CPT/HCPCS: 93880

== ENCOUNTER 2023-03-23 10:01 | Outpatient (CLI) | payer MEDICARE, BC, SELFPAY | END 2023-03-23 10:02 | disposition home or self-care (01) | PROVIDERS: PCP Student in an Organized Health Care Education/Training Program; Visit Provider Student in an Organized Health Care Education/Training Program | DX: R55 Syncope and collapse (principal) | CPT/HCPCS: 93246 ==

== ENCOUNTER 2023-04-24 03:32 | Outpatient (CLI) | payer MEDICARE, BC, SELFPAY ==
[2023-04-24 11:19] LABS: Abs Immature Grans 0.04 10^3/uL (0.0-0.06); Absolute Basophil Count 0.07 10^3/uL (0.0-0.2); Absolute Eosinophil Count 1.28 10^3/uL (0.0-0.7); Absolute Lymphocyte Count 1.34 10^3/uL (1.2-3.4); Absolute Monocyte Count 0.72 10^3/uL (0.1-0.8); Absolute Neutrophil Count 5.86 10^3/uL (1.2-6.7); Basophils % 0.8; Eosinophils % 13.7; HCT 35.7 % (40.0-50.0); HGB 12.3 g/dL (13.5-17.5); Immature Grans % 0.4; Lymphocytes % 14.4; MCH 31.8 pg (27.0-33.0); MCHC 34.5 % (32.0-36.0); MCV 92 fL (80-95); Monocytes % 7.7; Platelet Count 297 10^3/uL (130-400); RBC 3.87 10^6/uL (4.36-5.78); RDW 12.4 % (11.8-14.1); RDW-SD 41.7 fL; WBC 9.31 10^3/uL (4.4-10.8)
[2023-04-24 11:20] LABS: Bilirubin Negative (Negative); Blood Negative (Negative); Clarity Clear (Clear); Glucose Negative (Negative); Ketones Negative (Negative); Leukocyte Esterase Negative (Negative); Nitrite Negative (Negative); Specific Gravity 1.015 (1.005-1.025); Urobilinogen 0.2 mg/dL (Up to 0.2)
[2023-04-24 12:05] LABS: COMMENT (LAB VIEW ONLY) 87.62 mg/dL
[2023-04-24 12:11] LABS: ALT 22 U/L (16-63); AST 27 U/L (15-37); Albumin 3.7 g/dL (3.4-5.0); Alkaline Phosphatase 51 U/L (46-116); Anion Gap 8.9 mmol/L (3-11); BUN 26 mg/dL (7-18); Bilirubin, Total 0.5 mg/dL (0.2-1.0); CO2 27.1 mmol/L (21.0-32.0); CREATININE 1.6 mg/dL (0.70-1.30); Calcium 9.9 mg/dL (8.5-10.1); Chloride 102 mmol/L (98-107); Estimated GFR 42.49 (mL/min/1.73m2); Glucose 157 mg/dL (74-106); Potassium 4.6 mmol/L (3.5-5.1); Sodium 138 mmol/L (136-145)
[2023-04-24 12:15] LABS: Hemoglobin A1C 6.4 % (<5.7)
[2023-04-24 13:55] LABS: Calculated LDL 73 mg/dL (<100); Cholesterol 158 mg/dL (<200); HDL Cholesterol 75 mg/dL (40-60); Triglyceride 51 mg/dL (<150)
== END 2023-04-24 03:33 | disposition home or self-care (01) ==
LOC: LBO 03:33
PROVIDERS: PCP Student in an Organized Health Care Education/Training Program; Visit Provider Student in an Organized Health Care Education/Training Program
DX: E11.9 Type 2 diabetes mellitus without complications (principal); N30.01 Acute cystitis with hematuria; I10 Essential (primary) hypertension; Z79.4 Long term (current) use of insulin
CPT/HCPCS: 36415; 80053; 80061; 81003; 82043; 82570; 83036; 85025

== ENCOUNTER 2023-05-29 13:33 | Outpatient (CLI) | payer MEDICARE, BC, SELFPAY ==
[2023-05-29 13:51] LABS: HCT 35.7 % (40.0-50.0); HGB 12.2 g/dL (13.5-17.5); MCH 31.8 pg (27.0-33.0); MCHC 34.2 % (32.0-36.0); MCV 93 fL (80-95); MPV 10.6 fL (8.0-11.0); Platelet Count 276 10^3/uL (130-400); RBC 3.84 10^6/uL (4.36-5.78); RDW 12.4 % (11.8-14.1); RDW-SD 42.4 fL; WBC 8.78 10^3/uL (4.4-10.8)
[2023-05-29 14:22] LABS: Bilirubin Negative (Negative); Blood Negative (Negative); Clarity Clear (Clear); Glucose 250 mg/dL (Negative); Ketones Negative (Negative); Leukocyte Esterase Negative (Negative); Nitrite Negative (Negative); Specific Gravity 1.015 (1.005-1.025); Urobilinogen 0.2 mg/dL (Up to 0.2); pH 5.5 (5-8)
[2023-05-29 14:22] LABS: Albumin 3.6 g/dL (3.4-5.0); BUN 32 mg/dL (7-18); CREATININE 1.6 mg/dL (0.70-1.30); Calcium 9.5 mg/dL (8.5-10.1); Chloride 104 mmol/L (98-107); Estimated GFR 42.49 (mL/min/1.73m2); Glucose 209 mg/dL (74-106); PHOSPHORUS 3.3 mg/dL (2.6-4.7); Potassium 4.4 mmol/L (3.5-5.1); Sodium 140 mmol/L (136-145)
[2023-05-29 14:26] LABS: COMMENT (LAB VIEW ONLY) 67.95 mg/dL; PROTEIN 7.3 mg/dL
[2023-05-29 14:43] LABS: Vitamin D 25 Total 57.9 ng/mL (30-100)
[2023-05-29 14:45] LABS: Ferritin 42 ng/mL (26-388)
[2023-05-29 14:54] LABS: Iron 99 ug/dL (65-175); Total Iron Binding Capacity 368 ug/dL (250-450); Transferrin Sat 27 % (20-55)
[2023-05-29 23:11] LABS: Parathyroid Hormone,Intact 54 pg/mL (19-88)
== END 2023-05-29 13:34 | disposition home or self-care (01) ==
LOC: LBO 13:33
PROVIDERS: PCP Student in an Organized Health Care Education/Training Program; Visit Provider Internal Medicine Nephrology
DX: D64.9 Anemia, unspecified (principal); E78.5 Hyperlipidemia, unspecified; J45.909 Unspecified asthma, uncomplicated; N18.32 Chronic kidney disease, stage 3b
CPT/HCPCS: 36415; 80069; 82306; 85027; 81003; 82565; 82728; 83540; 83550; 83970; 84156

== ENCOUNTER 2023-06-28 16:41 | Outpatient (REF) | payer MEDICARE, BC, SELFPAY ==
[2023-06-28 13:28] LABS: Bilirubin Negative (Negative); Blood Negative (Negative); Clarity Clear (Clear); Glucose 250 mg/dL (Negative); Ketones Negative (Negative); Leukocyte Esterase Negative (Negative); Nitrite Negative (Negative); Specific Gravity 1.025 (1.005-1.025); Urobilinogen 0.2 mg/dL (Up to 0.2); pH 5.5 (5-8)
== END 2023-06-28 16:42 | disposition home or self-care (01) ==
LOC: NCHCN 16:41
PROVIDERS: PCP Student in an Organized Health Care Education/Training Program; Visit Provider Student in an Organized Health Care Education/Training Program
DX: R35.0 Frequency of micturition (principal)
CPT/HCPCS: 81003

== ENCOUNTER 2023-07-03 19:03 | Emergency (ER) | payer MEDICARE, BC, SELFPAY ==
[2023-07-03] VITALS (23 sets, daily range): BP systolic 142–200; BP diastolic 43–57; PULSE 52–69; RESP 16; TEMP 36.4; O2SAT 94–100
--- NOTE | 2023-07-03 19:00 | RT.EKG_ITS ---
APPROVED REPORT Exam: Resting ECG Reason for Exam: light headed Patient Location: E HR:65 bpm ECG Measurements Heart Rate 65 AXIS AK 240 P 33 QRSd 92 QRS 28 QT 437 T 55 QTc 456 Conclusion Sinus rhythm...normal P axis, V-rate 60- 99 Prolonged AK interval...AK >220, V-rate 50- 90
--- NOTE | 2023-07-03 19:15 | DI.RAD_ITS ---
Exam(s) XR PORTABLE CHEST AP EXAM: XR PORTABLE CHEST AP CLINICAL HISTORY: cough TECHNIQUE: 2D digital imaging was performed. COMPARISON: CT CHEST WITH CONTRAST from 08/17/2016 FINDINGS: LUNGS: Clear. No pleural abnormality seen. HEART: Normal size. AORTA: Normal diameter. BONES: Unremarkable for age. Soft tissues: Unremarkable surgical clips at GE junction. IMPRESSION: No acute findings. DATA REPOSITORY: RADIATION DOSE DELIVERED:
--- NOTE | 2023-07-03 19:21 | ED.GENADUL_ITS ---
Discharge Plan Discharge Details Chief Complaint: GenMedical Clinical Impression: General weakness Primary Care Provider: Jase Cutler ED Provider: Ankush Matos Home Meds and New Rx's Prescriptions: No Action enalapril maleate 5 MG tablet 5 mg PO DAILY fexofenadine [Lizeth Allergy] 60 MG tablet 60 mg PO DAILY simvastatin 10 MG tablet 10 mg PO HS aspirin 81 MG tablet,delayed release (DR/EC) 162 mg PO DAILY verapamil 240 MG tablet extended release 240 mg PO DAILY multivitamin 1 EACH capsule 1 tab PO DAILY insulin aspart U-100 [Novolog PenFill U-100 Insulin] 100 UNIT/ML cartridge 20 units SQ TID fish oil-dha-epa 1 EACH capsule 1 cap PO DAILY fenofibrate nanocrystallized [Tricor] 145 MG tablet 145 mg PO DAILY sitagliptin phosphate [Januvia] 50 MG tablet 50 mg PO DAILY insulin glargine [Lantus Solostar U-100 Insulin] 100 UNIT/ML insulin pen 18 units SQ BID ferrous sulfate 325 MG tablet 325 mg PO DAILY magnesium 250 MG tablet 500 mg PO DAILY Patient Comments: 07/20/16-patient states he no longer take this.kg cholecalciferol (vitamin D3) 1,000 UNITS tablet 2 tab PO BID Patient Comments: Pt takes 2 in am and 1 in PM levofloxacin 500 MG tablet 500 mg PO DAILY Qty: 7 0RF Patient Comments: 07/20/16-patient states he is done taking this med.kg acetaminophen [Mapap Extra Strength] 500 MG tablet 2,000 mg PO DAILY cefpodoxime 200 mg tablet 200 mg PO BID Qty: 14 0RF Rx Instructions: must administer with a meal/food Medical Decision Making 82 yo male with hx of DM, CKD, HTN, PMR, who comes in with 8 days of general malaise. He states he had a producitve cough the first few days and that has improved. He states he normally walks 3 or miles a day but the past 8 days has no energry to walk around. He denies fevers, chills, chest pain, dyspnea, abdominal pain, n/v, headaches. He is ambulatory on arrival, caox4 speaking clearly. He has no focal deficits, clear lungs, soft nontender abdomen. Unclear etiology for his symptoms, given his age will obtain ecg/troponin, cbc, cmp, ua and cxr along with covid test and reassess after iv fluids. He has no abdominal tenderness so do not feel imaging of his abdomen indicated. No tachycardia or hypoxia so doubt PE. Will obtain cxr due to his cough he had. No deficits on exam to suggest cva or other intracranial pathology, no headaches, do not feel emergent ct head indicated. Patient signed out to Dr. Neal pending labs and xray and reassessment after iv fluids. Differential Diagnosis Differential Diagnosis: anemia, covid, pneumonia, electrolyte abnormality Medical Records Medical records reviewed: Yes I reviewed the patient's medical records. Lab Data Lab results reviewed: Yes I reviewed the patient's lab results. ECG Data Attestation: I personally reviewed and interpreted this ECG (s) as follows: Prior ECG tracings: available for review Interpretation: sinus rate of 65 pr 240, no stemi HPI General Mode of arrival: ambulatory . Date/Time Provider Initiated Documentation: 07/03/23 19:04 . Limitations to Documentation: no limitations . Information obtained by: patient . History of Present Illness 82 year old M presents to the emergency department with the chief complaint of general weakness, described as moderate, Patient started experiencing this day(s) (8) and it has been constant. Rest improves symptom(s), Patient notes cough. Patient did receive the following treatments prior to arrival, none Related Data Home Medications Medication Instructions Recorded Confirmed aspirin 81 mg tablet,delayed 162 mg PO DAILY 11/06/14 07/19/16 release enalapril maleate 5 mg tablet 5 mg PO DAILY 11/06/14 07/19/16 fenofibrate nanocrystallized 145 145 mg PO DAILY 11/06/14 07/19/16 mg tablet (Tricor) fexofenadine 60 mg tablet (Lizeth 60 mg PO DAILY 11/06/14 07/19/16 Allergy) fish oil-dha-epa 1,200 mg-144 1 cap PO DAILY 11/06/14 07/19/16 mg-216 mg capsule insulin aspart U-100 100 unit/mL 20 units SQ TID 11/06/14 07/19/16 subcutaneous cartridge (Novolog PenFill U-100 Insulin aspart) insulin glargine 100 unit/mL (3 18 units SQ BID 11/06/14 07/19/16 mL) subcutaneous pen (Lantus Solostar U-100 Insulin) multivitamin 1 tab PO DAILY 11/06/14 07/19/16 simvastatin 10 mg tablet 10 mg PO HS 11/06/14 07/19/16 sitagliptin phosphate 50 mg tablet 50 mg PO DAILY 11/06/14 07/19/16 (Januvia) verapamil 240 mg tablet,extended 240 mg PO DAILY 11/06/14 07/19/16 release cholecalciferol (vitamin D3) 25 2 tab PO BID 06/21/16 07/19/16 mcg (1,000 unit) tablet ferrous sulfate 325 mg (65 mg 325 mg PO DAILY 06/21/16 07/19/16 iron) tablet levofloxacin 500 mg tablet 500 mg PO DAILY ##7 06/21/16 07/19/16 magnesium 250 mg tablet 500 mg PO DAILY 06/21/16 07/19/16 acetaminophen 500 mg tablet (Mapap 2,000 mg PO DAILY 07/19/16 07/19/16 Extra Strength) cefpodoxime 200 mg tablet 200 mg PO BID #14 tabs 03/08/23 Previous Rx's Medication Instructions Recorded levofloxacin 500 mg tablet 500 mg PO DAILY ##7 06/21/16 cefpodoxime 200 mg tablet 200 mg PO BID #14 tabs 03/08/23 Allergies Allergy/AdvReac Type Severity Reaction Status Date / Time venom-honey bee Allergy Swelling/Ed Verified 07/03/23 19:15 [bee venom (honey bee)] wes General Stated Complaint: GenMedical TOMER: 3 Review of Systems All systems reviewed & are unremarkable except as noted in HPI and below Constitutional Constitutional: Denies chills and Denies fever(s) Cardiovascular Cardiovascular: Denies chest pain and Denies dyspnea Respiratory Respiratory: Denies dyspnea Gastrointestinal Gastrointestinal: Denies abdominal pain, Denies nausea and Denies vomiting Integumentary/Breasts Skin/Breast: Denies rash PFSH All Active Problems (Updated 07/03/23 @ 19:25 by Ankush Matos MD) Diabetes mellitus, type II (Chronic) a. on insulin, premeal and twice daily Lantus, with excellent control; Hgb A1c 6.1 CKD (chronic kidney disease) (Chronic) a. most recent documented creatinine 1.5, followed by Nephrology Hypertension (Chronic) a. he states his systolic BPs tend to run in the 150s Asthma (Chronic) Benign prostatic hypertrophy (Chronic) a. PSA 6.0 PMR (polymyalgia rheumatica) (Chronic) a. diagnosed 10/2014, currently on tapering dose of Prednisone Fracture of femoral neck, right (Acute 11/13/14) a. s/p right cementless ARMIN H/O surgical procedure (Chronic) a. s/p right cementless ARMIN for femoral neck fx General weakness (Acute) Surgical History (Updated 12/02/14 @ 10:38 by Mery العراقي) Arthroplasty (11/08/14) RIGHT TOTAL HIP REPLACEMENT S/P FRACTURE/DREISBACH Social History Smoking/Tobacco Use Status: Never Smoking risk assessment performed?: Yes Drug use: Never Do you feel safe at home: Yes Do you feel safe in your relationship?: Yes Exam Const General: no acute distress Orientation: alert HENMT Head: normal to inspection Ears: external ears normal General nose exam: external nose normal Mouth: moist mucous membranes Eyes General: appearance normal, both eyes and all related structures Neck Neck: normal visual inspection Resp Effort & Inspection: normal respiratory effort and able to speak in complete sentences Auscultation: clear to auscultation bilaterally Cardio Jugular venous pressure: no JVD Rate: regular rate Heart Sounds: no murmurs GI Palpation: soft and nontender Skin General skin exam: no rashes or lesions noted Neuro General: patient alert and patient oriented x3 Extrem General: normal to inspection Psych Mental Status: mental status grossly normal Course Vital Signs Vital signs: Vital Signs Temperature 36.4 C L 07/03/23 19:06 Pulse 69 07/03/23 19:06 Respiratory Rate 16 07/03/23 19:06 Blood Pressure 159/48 H 07/03/23 19:06 Pulse Oximetry 97 07/03/23 19:06 Temperature 36.4 C L 07/03/23 19:06 Temperature Source Oral 07/03/23 19:06 Pulse 69 07/03/23 19:06 Respiratory Rate 16 07/03/23 19:06 Respiratory Effort Normal 07/03/23 19:14 Respiratory Depth Normal 07/03/23 19:14 Respiratory Pattern Normal 07/03/23 19:14 Blood Pressure 159/48 H 07/03/23 19:06 Pulse Oximetry 97 07/03/23 19:06 Oxygen Delivery Method Room Air 07/03/23 19:06 Oxygen Flow Rate 0 07/03/23 19:06 Pain Level 0 07/03/23 19:06
[2023-07-03 19:25] LABS: Source Nasal/Nares
[2023-07-03] MEDS: Normal Saline 1,000 ML 1000 ML IV ×2 (19:25→20:33)
[2023-07-03 19:27] LABS: Abs Immature Grans 0.06 10^3/uL (0.0-0.06); BE (Venous) 0 mmol/L (-2-3); Basophils % 0.5; Eosinophils % 6.6; HCO3 (Venous) 25 mmol/L (23-28); HCT 36.5 % (40.0-50.0); HGB 12.6 g/dL (13.5-17.5); Immature Grans % 0.5; Lymphocytes % 13.9; MCH 31.1 pg (27.0-33.0); MCHC 34.5 % (32.0-36.0); MCV 90 fL (80-95); MPV 10.1 fL (8.0-11.0); Monocytes % 5.4; Neutrophils % 73.1; O2 Sat (Venous) 81 %; Platelet Count 407 10^3/uL (130-400); RBC 4.05 10^6/uL (4.36-5.78); RDW 12.4 % (11.8-14.1); RDW-SD 40.6 fL; TCO2 (Venous) 22 mmol/L (24-29); WBC 13.27 10^3/uL (4.4-10.8); pCO2 (Venous) 38 mmHg (41-51); pH (Venous) 7.41 (7.31-7.41); pO2 (Venous) 45 mmHg
[2023-07-03 19:33] LABS: Absolute Basophil Count 0.07 10^3/uL (0.0-0.2); Absolute Eosinophil Count 0.88 10^3/uL (0.0-0.7); Absolute Lymphocyte Count 1.84 10^3/uL (1.2-3.4); Absolute Monocyte Count 0.72 10^3/uL (0.1-0.8)
[2023-07-03 19:44] LABS: PTT Activated 25.2 sec (21.5-31.9)
--- NOTE | 2023-07-03 19:57 | DI.VRAD_ITS ---
PROCEDURE INFORMATION: Exam: XR Chest Exam date and time: 07/03/2023 7:30 PM Age: 82 years old Clinical indication: Cough TECHNIQUE: Imaging protocol: Radiologic exam of the chest. Views: 1 view. COMPARISON: CT CHEST WITH CONTRAST 08/17/2016 2:21 PM FINDINGS: Lungs: Mild hyperexpansion and hyperlucency with mild diaphragmatic flattening suggesting possible COPD. Pulmonary vasculature grossly normal. No gross pulmonary infiltrates or edema pattern. Mild chronic linear fibrosis or atelectasis in the medial left lung base unchanged. Pleural spaces: No pleural effusion. No pneumothorax. Heart/Mediastinum: Surgical clips near the GE junction again noted. Heart size normal. No tracheal/mediastinal shift. Bones/joints: No acute osseous abnormalities are identified. Mild thoracic spondylosis. IMPRESSION: 1. No acute thoracic process. 2. Evidence of COPD. Dictated and Authenticated by: Jourdan Levi MD. Ordering:KIRK Lechuga MD
[2023-07-03 19:59] LABS: COVID-19 PCR Negative (Negative)
--- NOTE | 2023-07-03 20:07 | W.EDPROG ---
Date of service: 07/03/23 Time of Service: 20:07 Medical Decision Making Patient was signed out to me by Dr. Matos pending laboratory and chest x-ray work-up. Please refer to his HPI, physical exam, assessment and plan. Patient is reassessed, he states that his symptoms have actually been improving over the last few days. Currently states he feels well. Laboratory work-up shows mild white count of 13, no bandemia. Procalcitonin is normal. Lactate mildly elevated. Electrolytes stable. Renal function stable. Thyroid function normal. Urinalysis negative for infection, chest x-ray shows no signs of pneumonia. COVID is normal. With the remainder of the patient's work-up otherwise being stable, with no signs of heart attack or other significant abnormality otherwise in regards to acute life-threatening etiology I do feel that discharge is reasonable. That being said I do feel continued further work-up is indicated. No evidence of focal bacterial infection currently. Will recommend outpatient stress testing and pulmonary function testing. I did discuss with the patient that if he continues to develop symptoms that he should return promptly for reassessment. Discussed red flags for which to return. I have extensively reviewed the treatment plan and discharge instructions with the patient. I have addressed all patient concerns at this time. The patient was made aware of what symptoms to monitor for that would warrant a return to the emergency department. Discussed the plan with the patient, they demonstrate verbal understanding and agreement with our assessment and plan at this time. The documentation in this chart was dictated using [employer] dictation software. Please excuse any dictation errors. FINDINGS: Lungs: Mild hyperexpansion and hyperlucency with mild diaphragmatic flattening suggesting possible COPD. Pulmonary vasculature grossly normal. No gross pulmonary infiltrates or edema pattern. Mild chronic linear fibrosis or atelectasis in the medial left lung base unchanged. Pleural spaces: No pleural effusion. No pneumothorax. Heart/Mediastinum: Surgical clips near the GE junction again noted. Heart size normal. No tracheal/mediastinal shift. Bones/joints: No acute osseous abnormalities are identified. Mild thoracic spondylosis. IMPRESSION: 1. No acute thoracic process. 2. Evidence of COPD. Thank you for allowing us to participate in the care of your patient. Dictated and Authenticated by: Jourdan Levi MD 07/03/2023 7:57 PM Eastern Time ([place] & [place]) Sign Out Sign Out Data: Sign Out Comment: one week of general weakness, states he normally walks 3+ miles but has not had the energy level to go for walks the last 8 days. No focal deficits, walking on arrival, benign chest and abdomen exam. Pending labs and cxr, reassessment after iv fluids. Last updated by Ankush Matos MD at 07/03/23 19:27 Discharge Plan Disposition Patient Disposition: Home Discharge Details Chief Complaint: GenMedical Clinical Impression: General weakness Primary Care Provider: Jase Cutler ED Provider: Sal Neal Home Meds and New Rx's Prescriptions: No Action enalapril maleate 5 MG tablet 5 mg PO DAILY fexofenadine [Lizeth Allergy] 60 MG tablet 60 mg PO DAILY simvastatin 10 MG tablet 10 mg PO HS aspirin 81 MG tablet,delayed release (DR/EC) 162 mg PO DAILY verapamil 240 MG tablet extended release 240 mg PO DAILY multivitamin 1 EACH capsule 1 tab PO DAILY insulin aspart U-100 [Novolog PenFill U-100 Insulin] 100 UNIT/ML cartridge 20 units SQ TID fish oil-dha-epa 1 EACH capsule 1 cap PO DAILY fenofibrate nanocrystallized [Tricor] 145 MG tablet 145 mg PO DAILY sitagliptin phosphate [Januvia] 50 MG tablet 50 mg PO DAILY insulin glargine [Lantus Solostar U-100 Insulin] 100 UNIT/ML insulin pen 18 units SQ BID ferrous sulfate 325 MG tablet 325 mg PO DAILY magnesium 250 MG tablet 500 mg PO DAILY Patient Comments: 07/20/16-patient states he no longer take this.kg cholecalciferol (vitamin D3) 1,000 UNITS tablet 2 tab PO BID Patient Comments: Pt takes 2 in am and 1 in PM levofloxacin 500 MG tablet 500 mg PO DAILY Qty: 7 0RF Patient Comments: 07/20/16-patient states he is done taking this med.kg acetaminophen [Mapap Extra Strength] 500 MG tablet 2,000 mg PO DAILY cefpodoxime 200 mg tablet 200 mg PO BID Qty: 14 0RF Rx Instructions: must administer with a meal/food Discharge Instructions Instructions: Weakness (ED) Additional Instructions: At this time your laboratory work-up has returned reassuring. You have no current evidence of diabetic emergency, your chest x-ray shows no evidence of pneumonia. Your heart markers are negative for evidence of heart attack or significant abnormality. Your urinalysis shows no signs of urinary tract infection. Your thyroid function is normal. Your procalcitonin is normal. Your COVID test is negative. You do have a slight elevation in your white blood cell count, which may represent a viral etiology. However monitor your symptoms closely for any changes, if you notice any concerning changes do not hesitate to return. As we discussed together, although this work-up demonstrates stability, it is still appropriate to continue the evaluation on an outpatient basis for your heart and lung functionality. Please discuss further with your primary care provider about potential outpatient stress testing, as well as potential outpatient pulmonary function testing for your improving shortness of breath. If you notice any worsening of your symptoms, or any new symptoms such as vomiting, diarrhea, fever, chills, shortness of breath, chest pain, numbness, weakness, or fainting , please return immediately to the emergency department for reevaluation. Please follow up with your primary care provider as soon as possible for reassessment and reevaluation. As always, it was a pleasure participating in your medical care today. Referrals: Jase Cutler [Primary Care Provider] -
[2023-07-03 20:15] LABS: Procalcitonin < 0.1 ng/mL
[2023-07-03 20:18] LABS: ALT 32 U/L (16-63); AST 28 U/L (15-37); Albumin 3.5 g/dL (3.4-5.0); Alkaline Phosphatase 65 U/L (46-116); Anion Gap 10.2 mmol/L (3-11); BUN 31 mg/dL (7-18); Bilirubin, Total 0.4 mg/dL (0.2-1.0); CO2 24.8 mmol/L (21.0-32.0); CREATININE 1.7 mg/dL (0.70-1.30); Calcium 10.1 mg/dL (8.5-10.1); Chloride 100 mmol/L (98-107); Estimated GFR 39.51 (mL/min/1.73m2); Glucose 314 mg/dL (74-106); Potassium 4.2 mmol/L (3.5-5.1); Sodium 135 mmol/L (136-145); TSH (W/Ref FT4) 1.17 uIU/mL (0.36-3.74); Total Protein 7.2 g/dL (6.4-8.2); Troponin I < 50 ng/L (<or=60)
[2023-07-03 21:23] LABS: Bilirubin Negative (Negative); Blood Negative (Negative); Clarity Clear (Clear); Glucose >=1000 mg/dL (Negative); Ketones Negative (Negative); Leukocyte Esterase Negative (Negative); Nitrite Negative (Negative); Urobilinogen 0.2 mg/dL (Up to 0.2); pH 5.5 (5-8)
[2023-07-03 22:22] LABS: Troponin I < 50 ng/L (<or=60)
== END 2023-07-03 22:35 | disposition home or self-care (01) ==
PROVIDERS: Emergency Medicine; Emergency Provider Student in an Organized Health Care Education/Training Program; PCP Student in an Organized Health Care Education/Training Program
DX: R53.83 Other fatigue (principal); R05.9 Cough, unspecified; R53.1 Weakness; I12.9 Hypertensive chronic kidney disease with stage 1 through stage 4 chronic kidney disease, or unspecified chronic kidney disease; E11.22 Type 2 diabetes mellitus with diabetic chronic kidney disease; N18.9 Chronic kidney disease, unspecified; Z79.4 Long term (current) use of insulin
CPT/HCPCS: 80053; 82805; 84145; 87426; 87635; 93005; 96360; 96361; 99285; 71045; 81003; 83605; 83735; 84443; 84484; 85025; 85610; 85730; 93010; 99284

== ENCOUNTER 2023-08-17 01:51 | Outpatient (CLI) | payer MEDICARE, BC, SELFPAY ==
[2023-08-17 10:49] LABS: Abs Immature Grans 0.04 10^3/uL (0.0-0.06); Absolute Basophil Count 0.06 10^3/uL (0.0-0.2); Absolute Eosinophil Count 1.13 10^3/uL (0.0-0.7); Absolute Neutrophil Count 8.63 10^3/uL (1.2-6.7); Basophils % 0.5; Eosinophils % 9.3; HCT 37.1 % (40.0-50.0); HGB 12.5 g/dL (13.5-17.5); Immature Grans % 0.3; Lymphocytes % 11.5; MCH 31.3 pg (27.0-33.0); MCHC 33.7 % (32.0-36.0); MCV 93 fL (80-95); MPV 9.8 fL (8.0-11.0); Monocytes % 7.4; Platelet Count 294 10^3/uL (130-400); RDW 12.7 % (11.8-14.1); RDW-SD 43.8 fL; WBC 12.16 10^3/uL (4.4-10.8)
[2023-08-17 11:06] LABS: Hemoglobin A1C 5.9 % (<5.7)
[2023-08-17 11:29] LABS: COMMENT (LAB VIEW ONLY) 138.29 mg/dL; Microalb ug/mg Crea 16.2 ug/mg Cr
[2023-08-17 11:34] LABS: ALT 23 U/L (16-63); AST 15 U/L (15-37); Albumin 3.6 g/dL (3.4-5.0); Alkaline Phosphatase 49 U/L (46-116); Anion Gap 9.5 mmol/L (3-11); BUN 26 mg/dL (7-18); Bilirubin, Total 0.5 mg/dL (0.2-1.0); CO2 27.5 mmol/L (21.0-32.0); CREATININE 1.5 mg/dL (0.70-1.30); Calcium 10.2 mg/dL (8.5-10.1); Chloride 106 mmol/L (98-107); Estimated GFR 45.91 (mL/min/1.73m2); Glucose 100 mg/dL (74-106); Potassium 4.1 mmol/L (3.5-5.1); Sodium 143 mmol/L (136-145); Total Protein 7.3 g/dL (6.4-8.2)
== END 2023-08-17 01:52 | disposition home or self-care (01) ==
PROVIDERS: PCP Student in an Organized Health Care Education/Training Program; Visit Provider Student in an Organized Health Care Education/Training Program
DX: E11.9 Type 2 diabetes mellitus without complications (principal); Z79.4 Long term (current) use of insulin; D50.9 Iron deficiency anemia, unspecified
CPT/HCPCS: 36415; 80053; 82043; 82570; 83036; 85025

== ENCOUNTER 2023-11-13 15:07 | Outpatient (CLI) | payer MEDICARE, BC, SELFPAY ==
[2023-11-13 15:59] LABS: Abs Immature Grans 0.04 10^3/uL (0.0-0.06); Absolute Basophil Count 0.09 10^3/uL (0.0-0.2); Absolute Eosinophil Count 1.04 10^3/uL (0.0-0.7); Absolute Lymphocyte Count 1.88 10^3/uL (1.2-3.4); Absolute Monocyte Count 0.83 10^3/uL (0.1-0.8); Absolute Neutrophil Count 6.61 10^3/uL (1.2-6.7); Basophils % 0.9; Eosinophils % 9.9; HCT 38.7 % (40.0-50.0); HGB 13.5 g/dL (13.5-17.5); Immature Grans % 0.4; Lymphocytes % 17.9; MCH 31.5 pg (27.0-33.0); MCHC 34.9 % (32.0-36.0); MCV 90 fL (80-95); MPV 10.3 fL (8.0-11.0); Monocytes % 7.9; Platelet Count 355 10^3/uL (130-400); RBC 4.29 10^6/uL (4.36-5.78); RDW 12.2 % (11.8-14.1); RDW-SD 40.4 fL; WBC 10.49 10^3/uL (4.4-10.8)
[2023-11-13 16:00] LABS: Bilirubin Negative (Negative); Blood Trace-intact (Negative); Clarity Cloudy (Clear); Glucose 500 mg/dL (Negative); Ketones Negative (Negative); Leukocyte Esterase Small (Negative); Nitrite Negative (Negative); Specific Gravity 1.015 (1.005-1.025); Urobilinogen 0.2 mg/dL (Up to 0.2); pH 6.5 (5-8)
[2023-11-13 16:06] LABS: C & S Indicated? Yes; WBC >50 HPF (0-5)
[2023-11-13 16:36] LABS: COMMENT (LAB VIEW ONLY) 57.96 mg/dL; PROTEIN 14.6 mg/dL; Prot/Crea Ur Ratio 0.25
[2023-11-13 16:41] LABS: Albumin 3.8 g/dL (3.4-5.0); Anion Gap 11.9 mmol/L (3-11); BUN 33 mg/dL (7-18); CO2 24.1 mmol/L (21.0-32.0); CREATININE 1.7 mg/dL (0.70-1.30); Calcium 9.7 mg/dL (8.5-10.1); Chloride 101 mmol/L (98-107); Estimated GFR 39.26 (mL/min/1.73m2); Glucose 281 mg/dL (74-106); PHOSPHORUS 3.2 mg/dL (2.6-4.7); Potassium 4.3 mmol/L (3.5-5.1); Sodium 137 mmol/L (136-145)
[2023-11-14 18:00] LABS: Parathyroid Hormone,Intact 55 pg/mL (19-88)
== END 2023-11-13 15:08 | disposition home or self-care (01) ==
LOC: LBO 15:11
PROVIDERS: PCP Student in an Organized Health Care Education/Training Program; Visit Provider Psychiatry & Neurology Neurology
DX: D64.9 Anemia, unspecified (principal)
CPT/HCPCS: 36415; 80069; 81003; 81015; 82565; 83970; 84156; 85025; 87086

== ENCOUNTER 2024-01-23 14:15 | Outpatient (CLI) | payer MEDICARE, BC, SELFPAY ==
[2024-01-23 12:00] LABS: Bilirubin Negative (Negative); Blood Trace-intact (Negative); Clarity Sl Cloudy (Clear); Glucose 100 mg/dL (Negative); Ketones Trace mg/dL (Negative); Leukocyte Esterase Large (Negative); Nitrite Positive (Negative); Specific Gravity 1.025 (1.005-1.025); Urobilinogen 0.2 mg/dL (Up to 0.2)
[2024-01-23 12:01] LABS: HGB 12.9 g/dL (13.5-17.5); MCH 31.7 pg (27.0-33.0); MCHC 33.9 % (32.0-36.0); MCV 93 fL (80-95); MPV 11.3 fL (8.0-11.0); Platelet Count 198 10^3/uL (130-400); RBC 4.07 10^6/uL (4.36-5.78); RDW 12.8 % (11.8-14.1); RDW-SD 44.1 fL; WBC 9.34 10^3/uL (4.4-10.8)
[2024-01-23 12:14] LABS: Albumin 3.6 g/dL (3.4-5.0); Anion Gap 10.7 mmol/L (3-11); BUN 27 mg/dL (7-18); CO2 23.3 mmol/L (21.0-32.0); CREATININE 1.6 mg/dL (0.70-1.30); Calcium 9.4 mg/dL (8.5-10.1); Chloride 106 mmol/L (98-107); Estimated GFR 42.22 (mL/min/1.73m2); Glucose 233 mg/dL (74-106); PHOSPHORUS 3.2 mg/dL (2.6-4.7); Potassium 4.5 mmol/L (3.5-5.1); Sodium 140 mmol/L (136-145)
[2024-01-23 12:15] LABS: COMMENT (LAB VIEW ONLY) 153.33 mg/dL; PROTEIN 27.7 mg/dL; Prot/Crea Ur Ratio 0.18
[2024-01-23 12:17] LABS: Bacteria Moderate HPF (Negative); C & S Indicated? Yes; Casts Negative LPF (Negative); Crystals Negative HPF (Negative); Epithelial Cells Few HPF (Negative); Mucus Negative (Negative); RBC 0-2 HPF (0-2); WBC >50 HPF (0-5)
[2024-01-23 22:34] LABS: Parathyroid Hormone,Intact 53 pg/mL (19-88)
== END 2024-01-23 14:16 | disposition home or self-care (01) ==
LOC: LBO 14:15
PROVIDERS: PCP Student in an Organized Health Care Education/Training Program; Visit Provider Internal Medicine Nephrology
DX: J45.909 Unspecified asthma, uncomplicated (principal); D64.9 Anemia, unspecified; N18.30 Chronic kidney disease, stage 3 unspecified; E78.5 Hyperlipidemia, unspecified; I10 Essential (primary) hypertension; B96.89 Other specified bacterial agents as the cause of diseases classified elsewhere
CPT/HCPCS: 36415; 80069; 85027; 81003; 81015; 82565; 83970; 84156; 87086

== ENCOUNTER 2024-02-25 15:18 | Outpatient (REF) | payer MEDICARE, BC, SELFPAY ==
[2024-02-25 17:30] LABS: COMMENT (LAB VIEW ONLY) 157.68 mg/dL; Microalb ug/mg Crea 19.5 ug/mg Cr
== END 2024-02-25 15:19 | disposition home or self-care (01) ==
LOC: LBN 15:18
PROVIDERS: PCP Student in an Organized Health Care Education/Training Program; Visit Provider Student in an Organized Health Care Education/Training Program
DX: E11.9 Type 2 diabetes mellitus without complications (principal); Z79.1 Long term (current) use of non-steroidal anti-inflammatories (NSAID)
CPT/HCPCS: 82043; 82570

== ENCOUNTER 2024-02-26 05:12 | Outpatient (CLI) | payer MEDICARE, BC, SELFPAY ==
[2024-02-26 09:03] LABS: HCT 37.6 % (40.0-50.0); HGB 12.6 g/dL (13.5-17.5); MCH 31.7 pg (27.0-33.0); MCHC 33.5 % (32.0-36.0); MCV 95 fL (80-95); MPV 10.1 fL (8.0-11.0); Platelet Count 287 10^3/uL (130-400); RBC 3.98 10^6/uL (4.36-5.78); RDW 12.6 % (11.8-14.1); RDW-SD 43.7 fL; WBC 9.37 10^3/uL (4.4-10.8)
[2024-02-26 09:39] LABS: Hemoglobin A1C 6.7 % (<5.7)
[2024-02-26 09:48] LABS: ALT 28 U/L (16-63); AST 20 U/L (15-37); Albumin 3.6 g/dL (3.4-5.0); Alkaline Phosphatase 50 U/L (46-116); Anion Gap 5.8 mmol/L (3-11); BUN 26 mg/dL (7-18); Bilirubin, Total 0.6 mg/dL (0.2-1.0); CO2 30.2 mmol/L (21.0-32.0); CREATININE 1.4 mg/dL (0.70-1.30); Calcium 9.9 mg/dL (8.5-10.1); Chloride 109 mmol/L (98-107); Estimated GFR 49.56 (mL/min/1.73m2); Glucose 113 mg/dL (74-106); Potassium 4.1 mmol/L (3.5-5.1); Sodium 145 mmol/L (136-145); Total Protein 6.7 g/dL (6.4-8.2)
--- NOTE | 2024-04-24 08:43 | W.NUTRFU ---
Date of service: 04/23/24 Time of Service: 11:30 Nutrition Note NOTE: Met with Rj to print out a copy of his last 14 days of CGM data and review his trends for any recommended changes. Currently takes 20 units Lantus AM and 15 units PM. Januvia 50mg/day. His TDD of insulin is 35 units - .43units/kg at 81.8kg currently. His meal routines remain largely consistent most days. He still might use some maple syrup in his coffee - discussed omitting or cutting back to just the amount he needs. Reviewed his CGM report from dates 04/10/34-04/23/24 No lows recorded Average glucose: 189 spent 50% of recorded time in range (70-180), 30% high (181-251) and 20% very high (>250) Trend shows his highs consistently tend to be from 930AM to 8pm before going down within range again around 12AM. Most recent A1C I currently have access to was 6.7% 2 months ago in February, which is good to see. Due to low risk of hypoglycemia and his % time spent very high (20% compared with goal of <4%) I made the suggestion to Adrian to increase AM insulin 3 units. Goal is for me to call Sunday this week to see how his numbers have been and make an appointment for his next download of CGM data. Will also ask pt to bring in glucometer so we can test accuaracy of his CGM devcie and calibrate it if necessary. No other recommendations at this time besides emphasizing veggies and intact grain choices to Adrian and plenty of water. Time Spent in Nutritional Counseling and Treatment: 10 minutes
== END 2024-02-26 05:13 | disposition home or self-care (01) ==
LOC: LBO 05:12
PROVIDERS: PCP Student in an Organized Health Care Education/Training Program; Visit Provider Student in an Organized Health Care Education/Training Program
DX: E11.9 Type 2 diabetes mellitus without complications (principal); I10 Essential (primary) hypertension
CPT/HCPCS: 00123; 36415; 80053; 85027; 83036

== ENCOUNTER 2024-09-29 11:22 | Outpatient (CLI) | payer MEDICARE, BC, SELFPAY ==
[2024-09-29 10:07] LABS: Abs Immature Grans 0.04 10^3/uL (0.0-0.06); Absolute Basophil Count 0.07 10^3/uL (0.0-0.2); Absolute Eosinophil Count 0.78 10^3/uL (0.0-0.7); Absolute Lymphocyte Count 1.63 10^3/uL (1.2-3.4); Absolute Monocyte Count 0.84 10^3/uL (0.1-0.8); Absolute Neutrophil Count 7.35 10^3/uL (1.2-6.7); Basophils % 0.7 %; Eosinophils % 7.3 %; HCT 40.7 % (40.0-50.0); HGB 13.3 g/dL (13.5-17.5); Immature Grans % 0.4 %; Lymphocytes % 15.2 %; MCH 30.9 pg (27.0-33.0); MCHC 32.7 % (32.0-36.0); MCV 95 fL (80-95); MPV 10.3 fL (8.0-11.0); Monocytes % 7.8 %; Neutrophils % 68.6 %; Platelet Count 328 10^3/uL (130-400); RDW 12.6 % (11.8-14.1); RDW-SD 43.6 fL; WBC 10.71 10^3/uL (4.4-10.8)
[2024-09-29 10:09] LABS: Bilirubin Negative (Negative); Blood Trace-intact (Negative); Clarity Clear (Clear); Glucose >=1000 mg/dL (Negative); Ketones Negative (Negative); Leukocyte Esterase Small (Negative); Nitrite Positive (Negative); Specific Gravity 1.015 (1.005-1.025); Urobilinogen 0.2 mg/dL (Up to 0.2)
[2024-09-29 10:17] LABS: Bacteria Few HPF (Negative); C & S Indicated? Yes; Casts Negative LPF (Negative); Epithelial Cells Few HPF (Negative); Mucus Negative (Negative); WBC >50 HPF (0-5)
[2024-09-29 10:31] LABS: ALT 16 U/L (16-63); AST 20 U/L (15-37); Albumin 3.8 g/dL (3.4-5.0); Alkaline Phosphatase 51 U/L (46-116); Anion Gap 10.5 mmol/L (3-11); BUN 34 mg/dL (7-18); Bilirubin, Total 0.52 mg/dL (0.2-1.0); CO2 25.5 mmol/L (21.0-32.0); CREATININE 1.9 mg/dL (0.70-1.30); Calcium 9.9 mg/dL (8.5-10.1); Calculated LDL 63 mg/dL (<100); Chloride 105 mmol/L (98-107); Cholesterol 148 mg/dL (<200); Estimated GFR 34.35 (mL/min/1.73m2); Glucose 200 mg/dL (74-106); HDL Cholesterol 71 mg/dL (40-60); Potassium 4.4 mmol/L (3.5-5.1); Sodium 141 mmol/L (136-145); Total Protein 7.4 g/dL (6.4-8.2); Triglyceride 73 mg/dL (<150)
[2024-09-29 10:40] LABS: Albumin 3.8 g/dL (3.4-5.0); Anion Gap 12.1 mmol/L (3-11); BUN 31 mg/dL (7-18); CO2 24.9 mmol/L (21.0-32.0); CREATININE 1.8 mg/dL (0.70-1.30); Calcium 9.9 mg/dL (8.5-10.1); Chloride 105 mmol/L (98-107); Estimated GFR 36.66 (mL/min/1.73m2); Glucose 207 mg/dL (74-106); PHOSPHORUS 2.9 mg/dL (2.6-4.7); Potassium 4.4 mmol/L (3.5-5.1); Sodium 142 mmol/L (136-145)
[2024-09-29 10:42] LABS: COMMENT (LAB VIEW ONLY) 83.61 mg/dL; PROTEIN 15.2 mg/dL; Prot/Crea Ur Ratio 0.18
[2024-09-29 10:58] LABS: Hemoglobin A1C 6.5 % (<5.7)
[2024-09-29 15:37] LABS: Crystals Few Amorphous HPF (Negative)
[2024-09-29 18:26] LABS: Parathyroid Hormone,Intact 40.8 pg/mL (19.0-88.0)
== END 2024-09-29 11:23 | disposition home or self-care (01) ==
LOC: LBO 11:24
PROVIDERS: PCP Student in an Organized Health Care Education/Training Program; Visit Provider Internal Medicine Nephrology
DX: E78.2 Mixed hyperlipidemia (principal); E11.22 Type 2 diabetes mellitus with diabetic chronic kidney disease; I10 Essential (primary) hypertension
CPT/HCPCS: 36415; 80053; 80061; 80069; 81003; 81015; 82565; 83036; 83970; 84156; 84443; 85025; 87086

== ENCOUNTER 2024-12-17 15:26 | Outpatient (CLI) | payer MEDICARE, SELFPAY ==
--- NOTE | 2024-12-17 15:05 | DI.RAD_ITS ---
Exam(s) XR CHEST 2V PA LATERAL EXAM: XR CHEST 2V PA LATERAL CLINICAL HISTORY: eval pna, cough, R05.9. TECHNIQUE: 2D digital imaging was performed. COMPARISON: CR,XR XR PORTABLE CHEST AP from 07/03/2023 FINDINGS: 2 views: Heart size is normal. The mediastinum is not widened. Lungs are clear. No infiltrates nor pleural effusions. Calcification throughout the anterior lung tuna ligament of the thoracic spine is noted. No acute compression fractures evident. IMPRESSION: No acute pulmonary findings. DATA REPOSITORY: RADIATION DOSE DELIVERED:
== END 2024-12-17 15:46 ==
PROVIDERS: PCP Student in an Organized Health Care Education/Training Program; Visit Provider Nurse Practitioner Family
DX: R05.9 Cough, unspecified (principal)
CPT/HCPCS: 71046

== ENCOUNTER 2025-04-06 13:40 | Outpatient (CLI) | payer MEDICARE, SELFPAY ==
[2025-04-06 17:10] LABS: HCT 33.5 % (40.0-50.0); MCHC 32.8 % (32.0-36.0); MCV 91 fL (80-95); MPV 10.4 fL (8.0-11.0); Platelet Count 261 10^3/uL (130-400); RBC 3.67 10^6/uL (4.36-5.78); RDW 13.3 % (11.8-14.1); RDW-SD 44.7 fL; WBC 8.96 10^3/uL (4.4-10.8)
[2025-04-06 17:11] LABS: Bilirubin Negative (Negative); Blood Negative (Negative); Clarity Sl Cloudy (Clear); Glucose 500 mg/dL (Negative); Ketones Trace mg/dL (Negative); Leukocyte Esterase Small (Negative); Nitrite Positive (Negative); Urobilinogen 0.2 mg/dL (Up to 0.2)
[2025-04-06 17:17] LABS: WBC >50 HPF (0-5)
[2025-04-06 17:18] LABS: C & S Indicated? Yes
[2025-04-06 17:24] LABS: Hemoglobin A1C 6.8 % (<5.7)
[2025-04-06 17:43] LABS: COMMENT (LAB VIEW ONLY) 165.97 mg/dL; PROTEIN 34.2 mg/dL
[2025-04-06 17:47] LABS: Albumin 3.4 g/dL (3.4-5.0); Anion Gap 10.6 mmol/L (3-11); BUN 31 mg/dL (7-18); CO2 23.4 mmol/L (21.0-32.0); CREATININE 1.5 mg/dL (0.70-1.30); Calcium 9.3 mg/dL (8.5-10.1); Chloride 106 mmol/L (98-107); Estimated GFR 45.34 (mL/min/1.73m2); Glucose 325 mg/dL (74-106); PHOSPHORUS 3.5 mg/dL (2.6-4.7); Potassium 4.3 mmol/L (3.5-5.1); Sodium 140 mmol/L (136-145)
[2025-04-06 17:55] LABS: COMMENT (LAB VIEW ONLY) 165.01 mg/dL
[2025-04-06 18:15] LABS: ALT 30 U/L (16-63); AST 25 U/L (15-37); Albumin 3.4 g/dL (3.4-5.0); Alkaline Phosphatase 84 U/L (46-116); Anion Gap 7.7 mmol/L (3-11); BUN 32 mg/dL (7-18); Bilirubin, Total 0.4 mg/dL (0.2-1.0); CO2 25.3 mmol/L (21.0-32.0); CREATININE 1.6 mg/dL (0.70-1.30); Calcium 9.3 mg/dL (8.5-10.1); Calculated LDL 45 mg/dL (<100); Chloride 105 mmol/L (98-107); Cholesterol 154 mg/dL (<200); Estimated GFR 41.96 (mL/min/1.73m2); Glucose 330 mg/dL (74-106); HDL Cholesterol 64 mg/dL (>or=40); Magnesium 1.9 mg/dL (1.8-2.4); Potassium 4.2 mmol/L (3.5-5.1); Sodium 138 mmol/L (136-145); TSH 0.97 uIU/mL (0.36-3.74); Total Protein 6.8 g/dL (6.4-8.2); Triglyceride 228 mg/dL (<150); Vitamin B12 1995 pg/mL (193-986)
[2025-04-06 18:16] LABS: Folate > 20.0 ng/mL (8.6-20.0)
[2025-04-07 19:08] LABS: Parathyroid Hormone,Intact 49 pg/mL (19-88)
[2025-04-10 13:01] LABS: Thiamine (Vitamin B1), WB 217 nmol/L (70-180)
== END 2025-04-06 13:41 | disposition home or self-care (01) ==
PROVIDERS: PCP Student in an Organized Health Care Education/Training Program; Visit Provider Internal Medicine Nephrology
DX: E11.9 Type 2 diabetes mellitus without complications (principal); Z79.4 Long term (current) use of insulin; R41.3 Other amnesia; N18.32 Chronic kidney disease, stage 3b
CPT/HCPCS: 36415; 80053; 80061; 80069; 85027; 81003; 81015; 82043; 82565; 82570; 82607; 82746; 83036; 83735; 83970; 84156; 84425; 84443; 87086

== ENCOUNTER 2025-05-27 13:26 | Outpatient (CLI) | payer BC, MEDICARE, SELFPAY ==
[2025-05-27 14:06] LABS: HCT 23.9 % (40.0-50.0); HGB 7.4 g/dL (13.5-17.5)
== END 2025-05-27 13:27 | disposition home or self-care (01) ==
LOC: LBO 13:27
PROVIDERS: PCP Student in an Organized Health Care Education/Training Program; Visit Provider Student in an Organized Health Care Education/Training Program
DX: D64.9 Anemia, unspecified (principal)
CPT/HCPCS: 36415; 85014; 85018

== ENCOUNTER 2025-05-29 12:03 | Emergency (ER) | payer MEDICARE, SELFPAY ==
[2025-05-29] VITALS (31 sets, daily range): BP systolic 123–155; BP diastolic 38–59; PULSE 61–86; RESP 12–24; TEMP 36.3–36.9; O2SAT 96–100
--- NOTE | 2025-05-29 12:51 | W.ED.GENAD ---
Discharge Plan Disposition Patient Disposition: Home Condition: Stable Discharge Details Clinical Impression: Anemia Primary Care Provider: Jase Cutler ED Provider: Any Barnes Home Meds and New Rx's Prescriptions: Continued atorvastatin 10 mg tablet 10 mg PO DAILY budesonide-formoterol [Symbicort] 160-4.5 mcg/actuation HFA aerosol inhaler 2 puff inhalation DIRECTED famotidine 40 mg tablet 40 mg PO DAILY omeprazole 40 mg capsule,delayed release(DR/EC) 40 mg PO DAILY albuterol sulfate 90 mcg/actuation HFA aerosol inhaler 2 puff inhalation Q6H PRN cyanocobalamin-salcaprozat sod 1,000-100 mcg-mg tablet 1,000 tab PO DAILY escitalopram oxalate 5 mg tablet 5 mg PO DAILY lorazepam 0.5 mg tablet 0.5 mg PO DAILY PRN fexofenadine [Lizeth Allergy] 60 MG tablet 60 mg PO DAILY aspirin 81 MG tablet,delayed release (DR/EC) 162 mg PO DAILY multivitamin 1 EACH capsule 1 tab PO DAILY insulin aspart U-100 [Novolog PenFill U-100 Insulin] 100 UNIT/ML cartridge 20 units SQ TID fish oil-dha-epa 1 EACH capsule 1 cap PO DAILY fenofibrate nanocrystallized [Tricor] 145 MG tablet 145 mg PO DAILY Januvia 50 MG tablet 50 mg PO DAILY insulin glargine [Lantus Solostar U-100 Insulin] 100 UNIT/ML insulin pen 18 units SQ BID ferrous sulfate 325 MG tablet 325 mg PO DAILY cholecalciferol (vitamin D3) 1,000 UNITS tablet 2 tab PO BID Patient Comments: Pt takes 2 in am and 1 in PM acetaminophen [Mapap Extra Strength] 500 MG tablet 2,000 mg PO DAILY clopidogrel 75 mg tablet 75 mg PO DAILY Patient Comments: TAKE ONE TABLET BY MOUTH EVERY DAY losartan 50 mg tablet 50 mg PO DAILY Patient Comments: TAKE ONE TABLET BY MOUTH EVERY DAY Discharge Instructions Instructions: Anemia caused by low iron Additional Instructions: You were seen in the emergency department for your profound iron deficiency anemia, you have been feeling quite lethargic lately, you are not losing hemoglobin overtly fast, your value 2 days ago was 7.3 and today is 5-7.2 indicating no hemorrhage of blood. We provided you 1 unit of blood for symptomatic relief, please continue your iron supplements and follow-up with your primary care provider. Please return for any other emergent concerns like shortness of breath, dizziness, chest pain, near fainting. Referrals: Jase Cutler [Primary Care Provider, Medicine] Discharge Data Discharge Date/Time-TO BE ENTERED AT DEPARTURE: 05/29/25 17:18 HPI General Date/Time Provider Initiated Documentation: 05/29/25 12:14. HPI Narrative: 84 year-old female presents to ED today by POV/ambulating with his with a chief complaint of reported anemia on outpatient lab draw, with dizziness and fatigue for 2 weeks. Hemoglobin was 7.4 reportedly with hematocrit 23. Quality described as just fatigue and dizziness, no radiation to chest pain, black/bloody stools, coffee-ground emesis, nausea/vomiting, syncope, abdominal pain, fever. Severity is described as mild. Palliating factors include nothing specific attempted. Provoking factors include nothing specific. Events leading up to the incident/Associated Symptoms: Patient did have cardiac stents placed on 05/15/25. Patient not anticoagulated, but is on DAPT. Related Data Home Medications ?Medication ?Instructions ?Recorded ?Confirmed aspirin 81 mg tablet,delayed 162 mg PO DAILY 11/06/14 05/29/25 release fenofibrate nanocrystallized 145 145 mg PO DAILY 11/06/14 05/29/25 mg tablet (Tricor) fexofenadine 60 mg tablet (Lizeth 60 mg PO DAILY 11/06/14 05/29/25 Allergy) fish oil-dha-epa 1,200 mg-144 1 cap PO DAILY 11/06/14 05/29/25 mg-216 mg capsule insulin aspart U-100 100 unit/mL 20 units SQ TID 11/06/14 05/29/25 subcutaneous cartridge (Novolog PenFill U-100 Insulin aspart) insulin glargine 100 unit/mL (3 18 units SQ BID 11/06/14 05/29/25 mL) subcutaneous pen (Lantus Solostar U-100 Insulin) multivitamin 1 tab PO DAILY 11/06/14 05/29/25 sitagliptin phosphate 50 mg tablet 50 mg PO DAILY 11/06/14 05/29/25 (Januvia) cholecalciferol (vitamin D3) 25 2 tab PO BID 06/21/16 05/29/25 mcg (1,000 unit) tablet ferrous sulfate 325 mg (65 mg 325 mg PO DAILY 06/21/16 05/29/25 iron) tablet acetaminophen 500 mg tablet (Mapap 2,000 mg PO DAILY 07/19/16 05/29/25 Extra Strength) atorvastatin 10 mg tablet 10 mg PO DAILY 02/18/24 05/29/25 budesonide-formoterol HFA 160 2 puff inhalation DIRECTED 02/18/24 05/29/25 mcg-4.5 mcg/actuation aerosol inhaler (Symbicort) famotidine 40 mg tablet 40 mg PO DAILY 02/18/24 05/29/25 omeprazole 40 mg capsule,delayed 40 mg PO DAILY 02/18/24 05/29/25 release albuterol sulfate 90 mcg/actuation 2 puff inhalation Q6H PRN 01/19/25 05/29/25 aerosol inhaler cyanocobalamin 1,000 1,000 tab PO DAILY 01/19/25 05/29/25 mcg-salcaprozate sodium 100 mg tablet escitalopram oxalate 5 mg tablet 5 mg PO DAILY 01/19/25 05/29/25 lorazepam 0.5 mg tablet 0.5 mg PO DAILY PRN 01/19/25 05/29/25 clopidogrel 75 mg tablet 75 mg PO DAILY 05/29/25 05/29/25 losartan 50 mg tablet 50 mg PO DAILY 05/29/25 05/29/25 Allergies Allergy/AdvReac Type Severity Reaction Status Date / Time venom-honey bee (bee venom Allergy Swelling/Ed Verified 05/29/25 12:12 (honey bee)) wes General Stated Complaint: Dizzy/Sync TOMER: 3 Review of Systems All systems reviewed & are unremarkable except as noted in HPI and below Exam Narrative Exam Narrative: GENERAL APPEARANCE: Well-nourished, non-toxic, awake and alert, atraumatic, no acute distress. SKIN: Warm, pink, dry, intact, without rashes/lesions/ulcerations. HEAD: Normocephalic, atraumatic, normal hair distribution for gender/age. EYES: Normal conjunctiva, no exudates on lids/lashes. ENT: Nares patent, no circumoral cyanosis, no facial swelling NECK: Supple, trachea midline, painless cervical ROM. LUNGS/CHEST: Lungs CTA bilaterally, non-labored respirations, normal A/P diameter, symmetrical expansion, no chest wall deformity HEART (CV/PV): Regular rate and rhythm without murmur, no peripheral edema, no JVD. ABDOMEN: Soft, non-distended, no guarding. MSK: Normal ROM, no swelling/deformity to bilateral UEs or LEs, moving all extremities without weakness, no cyanosis, spine midline without tenderness, normal curvature. NEURO: Mental Status AAOx4 - alert to person, place, time, events No facial droop, no forehead involvement. Motor: No focal weakness - strength 5/5 in bilateral UEs and LEs, proximal and distal, symmetric. Sensory: sensation intact to light touch globally. Gait normal: patient ambulated without ataxia into ED room. PSYCH: euthymic, cooperative, pleasant, appropriate speech Course Vital Signs Vital signs: Vital Signs Temperature 36.3 C L 05/29/25 12:07 Pulse 69 05/29/25 12:07 Respiratory Rate 18 05/29/25 12:07 Blood Pressure 136/59 L 05/29/25 12:07 Pulse Oximetry 96 05/29/25 12:07 Temperature 36.3 C L 05/29/25 12:07 Temperature Source Oral 05/29/25 12:07 Pulse 69 05/29/25 12:07 Respiratory Rate 18 05/29/25 12:07 Blood Pressure 136/59 L 05/29/25 12:07 Blood Pressure Position Sitting 05/29/25 12:07 Pulse Oximetry 96 05/29/25 12:07 Oxygen Delivery Method Room Air 05/29/25 12:07 Oxygen Flow Rate 0 05/29/25 12:07 Medical Decision Making This dictation utilizes [id number] dictation software and may contain unedited grammatical errors. 84 year-old female presents to ED today by POV/ambulating with his with a chief complaint of reported anemia on outpatient lab draw, with dizziness and fatigue for 2 weeks. Hemoglobin was 7.4 reportedly with hematocrit 23. Quality described as just fatigue and dizziness, no radiation to chest pain, black/bloody stools, coffee-ground emesis, nausea/vomiting, syncope, abdominal pain, fever. Severity is described as mild. Palliating factors include nothing specific attempted. Provoking factors include nothing specific. Events leading up to the incident/Associated Symptoms: Patient did have cardiac stents placed on 05/15/25. Patients' medical history: Dysphagia, memory deficit, GERD, osteoporosis, hyperlipidemia, history of hematuria, asthma, hypertension, T2DM, CKD. Family and social history: Noncontributory. Pertinent exam findings / vital signs include benign cardiopulmonary exam, no abdominal tenderness, neuro intact, stable vitals. Differential / pathologies of concern include GI bleeding, anemia, iron deficiency, B12 deficiency, anemia of chronic disease. Diagnostic studies of: - Recheck of basic labs shows HgB of 7.2, reviewed prior labs his value with 2 days ago was 7.3 do not suspect significant GI hemorrhage -Low iron and high TIBC likely source of anemia - Serial troponins negative - Type and screen be negative with negative antibody screen - CMP shows chronic CKD and otherwise benign Interventions of: - Given 1 unit of packed red blood cells and recommend he follow-up with his outpatient provider, he did just start oral iron supplements. ED Course/Assessment/Plan: 84-year-old male with recent stent placement on May 15 presents with anemia, dropped 2 days ago that showed anemia 0.3, 2 days later is 7.2, he has low iron and high TIBC suspect iron deficiency anemia without evidence for any hemorrhage, has no symptoms of GI bleeding, no abdominal pain or any other pain anywhere besides mild fatigue. Counseled the patient to follow-up with his primary care provider, he recently started iron supplements, we provided 1 unit of red blood cells for symptomatic improvement with strict return criteria for any emergent concerns.. Findings not consistent with bleeding hemorrhage or other emergent pathology with his profound anemia. Disposition of Anemia. Patient verbalized understanding of the plan and return to ED criteria and engaged in shared decision making. Medical Records Medical records reviewed: Yes I reviewed the patient's medical records. Lab Data Lab results reviewed: Yes I reviewed the patient's lab results. Labs: Laboratory Tests Range/Units 05/29/25 05/29/25 12:44 16:25 WBC (4.4-10.8) 10^3/uL 9.11 RBC (4.36-5.78) 10^6/uL 2.68 L Hgb (13.5-17.5) g/dL 7.2 L Hct (40.0-50.0) % 24.4 L MCV (80-95) fL 91 MCH (27.0-33.0) pg 26.9 L MCHC (32.0-36.0) % 29.5 L RDW (11.8-14.1) % 13.9 Plt Count (130-400) 10^3/uL 370 MPV (8.0-11.0) fL 10.4 Immature Gran % % 0.4 Neutrophils % % 74.2 Lymphocytes % % 14.1 Monocytes % % 7.4 Eosinophils % % 3.5 Basophils % % 0.4 Nucleated RBC % (0.0-0.3) % 0.2 Absolute Neutrophils (1.2-6.7) 10^3/uL 6.76 H Absolute Lymphocytes (1.2-3.4) 10^3/uL 1.28 Absolute Monocytes (0.1-0.8) 10^3/uL 0.67 Absolute Eosinophils (0.0-0.7) 10^3/uL 0.32 Absolute Basophils (0.0-0.2) 10^3/uL 0.04 Sodium (136-145) mmol/L 139 Potassium (3.5-5.1) mmol/L 4.5 Chloride (98-107) mmol/L 104 Carbon Dioxide (21.0-32.0) mmol/L 24.6 Anion Gap (3-11) mmol/L 10.4 BUN (7-18) mg/dL 31 H Creatinine (0.70-1.30) mg/dL 1.5 H Est GFR (CKD-EPI 2020) (mL/min/1.73m2) 45.34 Glucose (74-106) mg/dL 294 H Calcium (8.5-10.1) mg/dL 9.4 Iron (65-175) ug/dL 22 L TIBC (250-450) ug/dL 493 H Transferrin % Sat (20-55) % 4 L Total Bilirubin (0.2-1.0) mg/dL 0.3 AST (15-37) U/L 14 L ALT (16-63) U/L 16 Alkaline Phosphatase (46-116) U/L 66 Troponin I (<or=76) ng/L 16 13 Total Protein (6.4-8.2) g/dL 6.7 Albumin (3.4-5.0) g/dL 3.2 L Vitamin B12 (193-986) pg/mL > 2000 H ABO/Rh B Negative Antibody Screen NEGATIVE Crossmatch See Detail PFSH All Active Problems (Updated 05/29/25 @ 14:42 by ISHMAEL Prieto) Anemia (Chronic) H/O surgical procedure (Chronic) a. s/p right cementless ARMIN for femoral neck fx Fracture of femoral neck, right (Acute 11/13/14) a. s/p right cementless ARMIN PMR (polymyalgia rheumatica) (Chronic) a. diagnosed 10/2014, currently on tapering dose of Prednisone Benign prostatic hypertrophy (Chronic) a. PSA 6.0 Asthma (Chronic) Hypertension (Chronic) a. he states his systolic BPs tend to run in the 150s CKD (chronic kidney disease) (Chronic) a. most recent documented creatinine 1.5, followed by Nephrology Diabetes mellitus, type II (Chronic) a. on insulin, premeal and twice daily Lantus, with excellent control; Hgb A1c 6.1 Medical History (Updated 05/29/25 @ 14:42 by ISHMAEL Prieto) Hoarseness Globus sensation Dysphagia Short-term memory loss Memory deficit Near syncope Constipation GERD (gastroesophageal reflux disease) Seasonal allergies Laceration of arm, left, multiple sites Cervicalgia Mixed hyperlipidemia Low back pain Atypical chest pain Chronic pain of both hips Bee sting allergy Vitamin D deficiency Squamous cell carcinoma of upper extremity Osteoporosis Hyperlipidemia Hematuria Diverticulosis of large intestine Depression, recurrent Chronic cough Cataract Mild intermittent asthma Surgical History (Updated 01/19/25 @ 15:05 by Leonora Gastelum) History of Chance fundoplication Hx of cholecystectomy History of colonoscopy History of esophagogastroduodenoscopy (EGD) Arthroplasty (11/08/14) RIGHT TOTAL HIP REPLACEMENT S/P FRACTURE/DREISBACH Social History Smoking/Tobacco Use Status: Never Smoking risk assessment performed?: Yes Alcohol Intake: former Drug use: Never Substance use type: does not use Do you feel safe at home: Yes Do you feel safe in your relationship?: Yes
[2025-05-29 12:59] LABS: Abs Immature Grans 0.04 10^3/uL (0.0-0.06); HCT 24.4 % (40.0-50.0); HGB 7.2 g/dL (13.5-17.5); Immature Grans % 0.4 %; MCH 26.9 pg (27.0-33.0); MCHC 29.5 % (32.0-36.0); MCV 91 fL (80-95); MPV 10.4 fL (8.0-11.0); Platelet Count 370 10^3/uL (130-400); RBC 2.68 10^6/uL (4.36-5.78); RDW 13.9 % (11.8-14.1); RDW-SD 45.1 fL; WBC 9.11 10^3/uL (4.4-10.8)
[2025-05-29 13:50] LABS: ALT 16 U/L (16-63); AST 14 U/L (15-37); Albumin 3.2 g/dL (3.4-5.0); Alkaline Phosphatase 66 U/L (46-116); Anion Gap 10.4 mmol/L (3-11); BUN 31 mg/dL (7-18); Bilirubin, Total 0.3 mg/dL (0.2-1.0); CO2 24.6 mmol/L (21.0-32.0); Calcium 9.4 mg/dL (8.5-10.1); Chloride 104 mmol/L (98-107); Estimated GFR 45.34 (mL/min/1.73m2); Glucose 294 mg/dL (74-106); Potassium 4.5 mmol/L (3.5-5.1); Sodium 139 mmol/L (136-145); Total Protein 6.7 g/dL (6.4-8.2)
[2025-05-29 13:51] LABS: Iron 22 ug/dL (65-175); Total Iron Binding Capacity 493 ug/dL (250-450); Transferrin Sat 4 % (20-55)
[2025-05-29 13:55] LABS: Vitamin B12 > 2000 pg/mL (193-986)
--- NOTE | 2025-05-29 16:15 | RT.EKG_ITS ---
APPROVED REPORT Exam: Resting ECG Reason for Exam: weakness Patient Location: E HR:66 bpm ECG Measurements Heart Rate 66 AXIS ME 279 P 42 QRSd 91 QRS 11 QT 410 T 19 QTc 429 Conclusion Sinus rhythm, rate 66 1st degree HB, ME interval 279ms, present on priors Q wave lead III, no STEMI
--- NOTE | 2025-05-29 16:15 | DI.RAD_ITS ---
Exam(s) XR CHEST 2V PA LATERAL EXAM: XR CHEST 2V PA LATERAL CLINICAL HISTORY: shortness of breath TECHNIQUE: 2D digital imaging was performed of the chest. Two images were obtained. PA and lateral views were obtained. COMPARISON: CR XR CHEST 2V PA LATERAL from 12/17/2024 FINDINGS: MEDIASTINUM: Normal. HEART: Normal. PULMONARY VASCULATURE: Normal. LUNGS: Clear. PLEURAL SPACE: No pleural effusion or pneumothorax. BONE:Within normal limits for the patient's age. There are extensive syndesmophytes throughout the thoracic spine most suggestive of ankylosing spondylitis. OTHER FINDINGS:There are surgical clips seen in the gastroesophageal junction. IMPRESSION: No acute pulmonary findings. DATA REPOSITORY: RADIATION DOSE DELIVERED:
[2025-05-29 16:40] LABS: Troponin I 16 ng/L (<or=76)
[2025-05-29 17:04] LABS: Troponin I 13 ng/L (<or=76)
--- NOTE | 2025-05-29 17:13 | W.ED.FU ---
Date of service: 05/29/25 Time of Service: 17:13 Follow Up Plan: Patient pending discharge when I reviewed [facility] notes and there is concern for recent stent placement 2 weeks ago with lightheadedness and dizziness. I therefore checked 2 troponins EKG and chest x-ray all of which do not show evidence of significant acute abnormality, given risk of stent occlusion. Patient is also feeling improvement and his diastolic is improved post transfusion. He is encouraged to take his iron pills and he has an appointment with his newsperson on Sunday. Return precautions reviewed and patient expressed understanding
== END 2025-05-29 17:18 | disposition home or self-care (01) ==
PROVIDERS: Physician Assistant; Emergency Provider Physician Assistant; PCP Student in an Organized Health Care Education/Training Program
DX: D64.9 Anemia, unspecified (principal); R42 Dizziness and giddiness; R53.83 Other fatigue
CPT/HCPCS: 99284; 99285; 36430; 36415; 80053; 86850; 86900; 86901; 86920; 93005; 71046; 82607; 83540; 83550; 84484; 85025; 93010; P9016

== ENCOUNTER 2025-07-10 03:55 | Outpatient (CLI) | payer MEDICARE, SELFPAY ==
--- NOTE | 2025-07-10 14:15 | DI.US_ITS ---
APPROVED REPORT EXAM: Comprehensive 2D, Doppler, and color-flow Echocardiogram Patient Location: Out-Patient Medical Chemist: Marisol Delgadillo RDCS (AE) Indications: Coronary artery disease, VIERA, Anginal equivalent Other Information Study Quality: Adequate. Technically limited study due to body habitus. Conclusion Normal left ventricular wall thickness and chamber size. Ejection fraction is 58%. Wall motion is normal Normal right ventricular size and function Both atria are normal in size The aortic valve is sclerotic and trileaflet. There is trace to mild regurgitation. There is no aortic stenosis Mild mitral annular calcification. Trace mitral regurgitation Wall motion Left Ventricle The left ventricle is normal size. The left ventricular systolic function is normal. The left ventricular ejection fraction is within the normal range. There is normal left ventricular wall thickness. There is normal LV segmental wall motion. There is no ventricular septal defect visualized. LVEF is 58%. Right Ventricle The right ventricle is normal size. The right ventricular systolic function is normal. Atria The left atrium size is normal. The right atrium size is normal. The interatrial septum is intact with no evidence for an atrial septal defect. Aortic Valve The Aortic valve is sclerotic. Aortic valve is trileaflet. There is no aortic valvular stenosis. Trace to mild aortic regurgitation. Mitral Valve Mild mitral annular calcification. No evidence of mitral valve stenosis. Trace mitral regurgitation. Tricuspid Valve The tricuspid valve is normal in structure. There is no tricuspid valve stenosis. Trace tricuspid regurgitation. Unable to assess PA pressure. Pulmonic Valve The pulmonary valve is normal in structure. There is no pulmonic valvular stenosis. There is no pulmonic valvular regurgitation. Great Vessels The aortic root is normal in size. Ascending aorta is not well visualized. Aortic arch is not well visualized. IVC is normal in size and collapses >50% with inspiration. Pericardium There is no pericardial effusion. 2D Dimensions IVSD d PLAX 1.14 cm M: 0.6-1.2 Ao Root d 3.48 cm M: 3.1 - 3.7 LVPW d PLAX 1.10 cm M: 0.6 - 1.2 LVID d PLAX 4.52 cm M: 4.2 - 5.8 LVDs 3.14 cm M: 2.5 - 4.0 LV EF Teichholz 58.2 % FS 30.59 % LV EDV (Teich) 93.4 mL LV ESV (Teich) 39.0 mL M-Mode TAPSE 2.32 cm (M/F) >1.7 Auto EF LV EDV A4C 104.4 mL LV EDV A2C 106.7 mL LV EDV BP 105.2 mL LV ESV A4C 43.9 mL LV ESV A2C 45.0 mL LV ESV BP 44.1 mL LVEF(%) A4C 57.9 % LVEF(%) A2C 57.9 % LVEF(%) BP 58.1 % LV SV A4C 60.5 ml LV SV A2C 61.8 ml LV SV BP 61.1 ml LV CO A4C 4.0 L/min LV CO A2C 4.0 L/min LV CO BP 4.0 L/min HR A4C 65.34 BPM HR A2C 64.49 BPM LV EDV Index (BP) LA Volume LA Length A4C 4.3 cm LA Length A2C 4.3 cm LA Area A4C s 12.30 cm2 LA Area A2C s 13.58 cm2 LA Vol A4C A-L 30.08 mL LA Vol A2C A-L 36.26 mL LA Vol Biplane A-L 33.2 mL LA Vol/BSA A4C A-L LA Vol/BSA A2C A-L LA Vol/BSA BP A-L 16.8 mL/m2 LA Vol A4C MOD 26.6 mL LA Vol A2C MOD 34.6 mL LA Vol BP MOD 30.4 mL RA Volume RA Area A4C 11.7 cm2 RA ESV A4C (A-L) 25.5mL RA Vol/BSA A4C A-L RA Length A4C 4.5 cm RA ESV A4C (MOD) 24.0mL LV Diastology MV E' medial 0.067 (>0.07 m/s) MV E Vmax 0.60 (0.4-1.3 m/s) MV E/E' MED 9.03 (<14) MV A Vmax 0.90 (0.4-1.3 m/s) MV E' lateral 0.051 (>0.1 m/s) E/A Ratio 0.7 MV E/E' LAT 11.88 (<14) MV E' Average 0.059 m/s MV E/E'(average) 10.26 Aortic Valve AoV Vmax 1.55 m/s LVOT Vmax 0.87 m/s AoV Peak Grad 30.4 mmHg LVOT Peak Grad 3.0 mmHg AoV Area (Vmax) 1.76 cm2 LVOT VTI 0.187 m AoV VTI 0.357 m LVOT Mean Grad 1.9 mmHg AoV Mean Alejandro. 1.09 m/s LVOT SV 58.59 mL AoV Mean Grad 5.5 mmHg LVOT Diam s 1.95 cm AoV Area (VTI) 1.64 cm2 AV Regurg Peak Gr. 9.64 mmHg Velocity Ratio 0.56 AR Decel Delta 1.0m/sec2 AR DT 3470 msec AR PHT 1006 msec AR Vmax 3.58 m/s Mitral Valve MV DT 346 (160-240 msec) MV Vmax TIPS 0.97 m/s MV Mean Grad 1.3 (<2mmHg) MV VTI 0.278 m Pulmonary Valve PV Vmax 1.09 (0.5-1.5 m/s) RVOT Vmax 0.82 m/s PV Peak Grad 4.7 mmHg RVOT Peak Gr. 2.7 mmHg PV Mean Alejandro 0.76 m/s RVOT VTI 0.172 m PV Mean Grad 2.5 mmHg RVOT Mean Gr. 1.4 mmHg Tricuspid Valve RA Pressure 3.00 mmHg TV S' 0.15 m/s
== END 2025-07-10 04:15 ==
LOC: DI 03:55
PROVIDERS: PCP Student in an Organized Health Care Education/Training Program; Visit Provider Internal Medicine Cardiovascular Disease
DX: I25.10 Atherosclerotic heart disease of native coronary artery without angina pectoris (principal); R06.09 Other forms of dyspnea
CPT/HCPCS: 93306

== ENCOUNTER → 2025-07-27 13:08 | Outpatient (BNVA) | payer MEDICARE, SELFPAY | PROVIDERS: PCP Student in an Organized Health Care Education/Training Program; Referring Provider Student in an Organized Health Care Education/Training Program; Visit Provider Internal Medicine Pulmonary Disease | DX: J45.40 Moderate persistent asthma, uncomplicated (principal); D72.19 Other eosinophilia; R06.00 Dyspnea, unspecified; Z23 Encounter for immunization | CPT/HCPCS: 90471; 90653; 90684; 99205 ==

== ENCOUNTER 2025-08-28 02:45 | Outpatient (CLI) | payer MEDICARE, SELFPAY ==
[2025-08-28] MEDS: Inhaler, Assist Device 1 EACH MC (16:17)
[2025-08-28] MEDS: Levalbuterol HFA 15 GM INH 4 PUFF IH (16:18)
--- NOTE | 2025-09-02 10:51 | W.PFT ---
Date of service: 08/28/25 Time of Service: 14:58 Pulmonary Function Test Result Indications: Asthma Impression 1. Good patient effort was noted. ATS standards for reproducibility were met. 2. Spirometry showed moderate obstructive lung disease with an FEV1 of 59% (1.43 L). Post bronchodilator, his FEV1 improved to 86% 3. Following the administration of a bronchodilator there was a significant response 4. TLC was normal. No evidence of restrictive lung disease 5. DLCO was 72%, consistent with a mild defect in alveolar gas exchange
== END 2025-08-28 02:46 | disposition home or self-care (01) ==
LOC: RT 02:45
PROVIDERS: PCP Student in an Organized Health Care Education/Training Program; Visit Provider Internal Medicine Pulmonary Disease
DX: J45.40 Moderate persistent asthma, uncomplicated (principal); J44.9 Chronic obstructive pulmonary disease, unspecified
CPT/HCPCS: 94060; 94726; 94729

== ENCOUNTER → 2025-09-14 13:52 | Outpatient (BNVA) | payer MEDICARE, SELFPAY | PROVIDERS: PCP Student in an Organized Health Care Education/Training Program; Referring Provider Student in an Organized Health Care Education/Training Program; Visit Provider Internal Medicine Pulmonary Disease | DX: J45.40 Moderate persistent asthma, uncomplicated (principal); R06.00 Dyspnea, unspecified; D72.19 Other eosinophilia; K21.9 Gastro-esophageal reflux disease without esophagitis | CPT/HCPCS: 99214 ==

== ENCOUNTER → 2025-09-14 19:34 | Outpatient (CLI) | payer MEDICARE, SELFPAY ==
--- NOTE | 2025-09-14 15:00 | DI.RAD_ITS ---
Exam(s) XR RIBS LT W PA LAT CHEST EXAM: XR RIBS LT W PA LAT CHEST CLINICAL HISTORY: SOB, recent fall R06.00 DYSPNEA TECHNIQUE: 2D digital imaging was performed. Six images are obtained. COMPARISON: CR,XR XR PORTABLE CHEST AP from 07/03/2023 CR XR CHEST 2V PA LATERAL from 05/29/2025 FINDINGS: MEDIASTINUM: Normal. HEART: Normal. PULMONARY VASCULATURE: Normal. LUNGS: Clear. PLEURAL SPACE: No pleural effusion or pneumothorax. BONE:Within normal limits for the patient's age. Ankylosing spondylitis is seen in the thoracic spine. LEFT RIBS: Normal. OTHER FINDINGS:There are surgical clips again seen near the gastroesophageal junction. IMPRESSION: 1. No acute pulmonary findings. 2. There are no displaced left rib fractures. If there is continued clinical concern, a CT scan of the chest may be obtained for further evaluation. DATA REPOSITORY: RADIATION DOSE DELIVERED:
== END ==
LOC: DI 19:34
PROVIDERS: PCP Student in an Organized Health Care Education/Training Program; Visit Provider Physician Assistant Surgical
DX: R06.00 Dyspnea, unspecified (principal)
CPT/HCPCS: 71046; 71100